=== PATIENT | female | born 1985 | race Caucasian/White ===

== ENCOUNTER 2019-02-20 09:58 | Outpatient (CLI) | payer OTHER, SELFPAY | END 2019-02-20 10:18 | PROVIDERS: PCP Naturopath; Visit Provider Advanced Practice Midwife | DX: Z34.91 Encounter for supervision of normal pregnancy, unspecified, first trimester (principal) | CPT/HCPCS: 36415; 86850; 86900; 86901 ==

== ENCOUNTER 2019-03-12 12:19 | Outpatient (REF) | payer OTHER, SELFPAY ==
[2019-03-12 14:02] LABS: *AMPHETAMINES SCREEN URINE Negative (Negative); *BARBITURATES SCREEN URINE Negative (Negative); *BENZODIAZEPINES SCREEN URINE Negative (Negative); Cannabinoids THC Negative (Negative); Cocaine Screen,Urine Negative (Negative); METHADONE URINE SCREEN Negative (Negative); OPIATES URINE SCREEN Negative (Negative)
[2019-03-12 14:05] LABS: Tricyclic Antidepressants Negative (Negative)
[2019-03-18 13:58] LABS: Buprenorphine Negative; Norbuprenorphine Negative
== END 2019-03-12 12:39 ==
LOC: LBN 12:19
PROVIDERS: PCP Naturopath; Visit Provider Advanced Practice Midwife
DX: Z34.91 Encounter for supervision of normal pregnancy, unspecified, first trimester (principal)
CPT/HCPCS: 80307; 87086

== ENCOUNTER 2019-03-18 08:22 | Outpatient (CLI) | payer SELFPAY ==
[2019-03-18 09:30] LABS: Kit/Specimen SENT
[2019-03-18 09:42] LABS: Absolute Basophil Count 0.01 k/cumm (0.0-0.2); Absolute Eosinophil Count 0.07 k/cumm (0.0-0.7); Absolute Lymphocyte Count 1.17 k/cumm (1.2-3.4); Absolute Monocyte Count 0.32 k/cumm (0.11-0.7); Absolute Neutrophil Count 3.84 k/cumm (1.2-6.7); Basophils % 0.2; Eosinophils % 1.3; HCT 39.1 % (36.0-46.0); HGB 13.2 g/dL (12.0-15.5); Lymphocytes % 21.6; Mean Corp. HGB Concentration 33.8 g/dL (32.0-36.0); Mean Corpuscular Hemoglobin 32.3 pg (27.0-33.0); Mean Corpuscular Volume 95.6 fL (80-95); Mean Platelet Volume 8.9 fL (8.0-11.0); Monocytes % 5.9; Platelet Count 236 x1000/uL (130-400); RBC 4.09 m/cumm (4.00-5.20); RBC Distribution Width 12.4 % (11.7-14.6); White Blood Cell Count 5.41 k/cumm (4.4-10.8)
[2019-03-19 09:05] LABS: Hepatitis B Surface Ag Negative (Negative)
[2019-03-19 09:47] LABS: HIV-1/2 Ag & Ab Screen Negative (Negative); Hepatitis C Ab w Rflx HCV PCR Negative (Negative)
[2019-03-19 10:30] LABS: Rubella IgG Ab (UVM) Positive (See Note); Varicella IgG Antibody Positive (See Note)
[2019-03-19 12:52] LABS: Syphilis Total Ab w/Reflex Nonreactive (Nonreactive)
[2019-03-21 11:29] LABS: Result Summary NEGATIVE; Specimen WB Whole Blood
[2019-03-24 09:51] LABS: Specimen WB Whole Blood
== END 2019-03-18 08:42 ==
PROVIDERS: PCP Naturopath; Visit Provider Advanced Practice Midwife
DX: Z34.91 Encounter for supervision of normal pregnancy, unspecified, first trimester (principal); Z36.89 Encounter for other specified antenatal screening
CPT/HCPCS: 36415; 81329; 86787; 86803; 86850; 86900; 86901; 87340; 87389; 81220; 85025; 86762; 86780

== ENCOUNTER 2019-04-28 01:39 | Outpatient (CLI) | payer OTHER, SELFPAY ==
--- NOTE | 2019-04-28 08:45 | DI.US_ITS ---
EXAM: US OB 2-3 TRIMESTER CLINICAL HISTORY: , Z34.90 TECHNIQUE: Ultrasound performed using standard protocol. COMPARISON: No exams were available for comparison FINDINGS: The fetus was in variable position during the exam. The placenta is posterior. The biometric measu rements correspond to 18 weeks 3 days, consistent with previous dating. No abnormalities are i dentified. IMPRESSION: survey is within normal limits. DATA REPOSITORY:
== END 2019-04-28 01:59 ==
PROVIDERS: PCP Nurse Practitioner Family; Visit Provider Advanced Practice Midwife
DX: Z34.92 Encounter for supervision of normal pregnancy, unspecified, second trimester (principal); Z3A.18 18 weeks gestation of pregnancy
CPT/HCPCS: 76805

== ENCOUNTER 2019-07-09 09:32 | Outpatient (CLI) | payer OTHER, SELFPAY ==
[2019-07-09 09:57] LABS: HCT 39.4 % (36.0-46.0); HGB 13.4 g/dL (12.0-15.5); Mean Corpuscular Hemoglobin 33.4 pg (27.0-33.0); Mean Corpuscular Volume 98.3 fL (80-95); Mean Platelet Volume 8.9 fL (8.0-11.0); Platelet Count 267 x1000/uL (130-400); RBC 4.01 m/cumm (4.00-5.20); RBC Distribution Width 12.4 % (11.7-14.6); White Blood Cell Count 8.99 k/cumm (4.4-10.8)
== END 2019-07-09 09:52 ==
PROVIDERS: PCP Nurse Practitioner Family; Visit Provider Advanced Practice Midwife
DX: Z34.93 Encounter for supervision of normal pregnancy, unspecified, third trimester (principal)
CPT/HCPCS: 85027; 82947

== ENCOUNTER 2019-09-04 17:21 | Outpatient (REF) | payer OTHER, SELFPAY ==
[2019-09-04 18:34] LABS: *AMPHETAMINES SCREEN URINE Negative (Negative); *BARBITURATES SCREEN URINE Negative (Negative); *BENZODIAZEPINES SCREEN URINE Negative (Negative); Cannabinoids THC Negative (Negative); Cocaine Screen,Urine Negative (Negative); METHADONE URINE SCREEN Negative (Negative); OPIATES URINE SCREEN Negative (Negative)
[2019-09-04 18:50] LABS: Tricyclic Antidepressants Negative (Negative)
[2019-09-13 16:24] LABS: Buprenorphine Negative
== END 2019-09-04 17:41 ==
LOC: LBN 17:21
PROVIDERS: PCP Nurse Practitioner Family; Visit Provider Advanced Practice Midwife
DX: Z34.93 Encounter for supervision of normal pregnancy, unspecified, third trimester (principal); Z36.85 Encounter for antenatal screening for Streptococcus B
CPT/HCPCS: 80307; 87081

== ENCOUNTER 2019-09-18 20:56 | Outpatient (REF) | payer OTHER, SELFPAY ==
[2019-09-25 18:34] LABS: Chlamydia Result Negative (Negative); GC Result Negative (Negative)
== END 2019-09-18 21:16 ==
LOC: LBN 20:56
PROVIDERS: PCP Nurse Practitioner Family; Visit Provider Advanced Practice Midwife
DX: Z34.90 Encounter for supervision of normal pregnancy, unspecified, unspecified trimester (principal)
CPT/HCPCS: 87491; 87591

== ENCOUNTER 2019-09-24 03:12 | Outpatient (CLI) | payer OTHER, SELFPAY ==
[2019-09-24 10:32] LABS: Abs Immature Grans 0.03 10^3/uL (0.0-0.06); Absolute Basophil Count 0.02 10^3/uL (0.0-0.2); Absolute Eosinophil Count 0.02 10^3/uL (0.0-0.7); Absolute Lymphocyte Count 1.47 10^3/uL (1.2-3.4); Absolute Monocyte Count 0.41 10^3/uL (0.1-0.8); Absolute Neutrophil Count 4.35 10^3/uL (1.2-6.7); Basophils % 0.3; Eosinophils % 0.3; HCT 36.5 % (36.0-46.0); HGB 12.6 g/dL (11.2-15.7); Immature Grans % 0.5; Lymphocytes % 23.3; MCH 33.4 pg (27.0-33.0); MCHC 34.5 % (32.0-36.0); MCV 96.8 fL (80-95); MPV 9.8 fL (8.0-11.0); Monocytes % 6.5; Neutrophils % 69.1; Platelet Count 178 10^3/uL (130-400); RBC 3.77 10^6/uL (3.93-5.22); RDW-SD 42.5 fL
[2019-09-24 11:47] LABS: PROTEIN 6.8 mg/dL
[2019-09-24 11:48] LABS: COMMENT (LAB VIEW ONLY) 72.94 mg/dL; Prot/Crea Ur Ratio 0.09
[2019-09-24 12:09] LABS: ALT 23 U/L (14-59); AST 35 U/L (15-37); Albumin 2.7 g/dL (3.4-5.0); Alkaline Phosphatase 132 U/L (46-116); Anion Gap 9.4 mmol/L (3-11); BUN 15 mg/dL (7-18); Bilirubin, Total 0.3 mg/dL (0.2-1.0); CO2 23.6 mmol/L (21.0-32.0); CREATININE 1.02 mg/dL (0.55-1.02); Calcium 8.6 mg/dL (8.5-10.1); Chloride 104 mmol/L (98-107); Glucose 82 mg/dL (74-106); Potassium 4.2 mmol/L (3.5-5.1); Sodium 137 mmol/L (136-145); Total Protein 6.1 g/dL (6.4-8.2); Uric Acid 8.3 mg/dL (2.6-6.0)
== END 2019-09-24 03:32 ==
PROVIDERS: PCP Nurse Practitioner Family; Visit Provider Advanced Practice Midwife
DX: O16.3 Unspecified maternal hypertension, third trimester (principal)
CPT/HCPCS: 36415; 80053; 82565; 84156; 84550; 85025

== ENCOUNTER 2019-09-25 11:15 | Outpatient (CLI) | payer OTHER, SELFPAY | END 2019-09-25 11:35 | PROVIDERS: PCP Nurse Practitioner Family; Visit Provider Advanced Practice Midwife | DX: O13.3 Gestational [pregnancy-induced] hypertension without significant proteinuria, third trimester (principal); Z3A.39 39 weeks gestation of pregnancy | CPT/HCPCS: 59025 ==

== ENCOUNTER 2019-09-27 16:46 | Inpatient (IN) | payer OTHER, SELFPAY ==
[2019-09-27 16:20] LABS: HCT 34.5 % (36.0-46.0); HGB 11.8 g/dL (11.2-15.7); MCH 33.1 pg (27.0-33.0); MCHC 34.2 % (32.0-36.0); MCV 96.6 fL (80-95); MPV 9.8 fL (8.0-11.0); Platelet Count 173 10^3/uL (130-400); RBC 3.57 10^6/uL (3.93-5.22); RDW 11.9 % (11.7-14.6); RDW-SD 41.8 fL; WBC 7.22 10^3/uL (4.4-10.8)
[2019-09-27 16:35] LABS: ALT 16 U/L (14-59); AST 27 U/L (15-37); Albumin 2.4 g/dL (3.4-5.0); Alkaline Phosphatase 126 U/L (46-116); Anion Gap 9.7 mmol/L (3-11); BUN 14 mg/dL (7-18); Bilirubin, Total 0.2 mg/dL (0.2-1.0); CO2 22.3 mmol/L (21.0-32.0); CREATININE 1.02 mg/dL (0.55-1.02); Calcium 8.4 mg/dL (8.5-10.1); Chloride 105 mmol/L (98-107); Glucose 104 mg/dL (74-106); Sodium 137 mmol/L (136-145); Uric Acid 7.8 mg/dL (2.6-6.0)
[2019-09-27 17:40] LABS: COMMENT (LAB VIEW ONLY) 83.39 mg/dL; PROTEIN 11.7 mg/dL; Prot/Crea Ur Ratio 0.14
[2019-09-27] MEDS: miSOPROStol 25 MCG TAB 50 MCG PO (18:25)
[2019-09-28 07:41] VITALS: BP 130/81; PULSE 63; RESP 17; TEMP 37.3; O2SAT 97
[2019-09-28] MEDS: Acetaminophen 325 MG TAB 650 MG PO ×2 (08:46→16:17)
[2019-09-28] MEDS: Ibuprofen 600 MG TAB PO ×2 (08:46→16:14)
[2019-09-28] MEDS: Hamamelis Leaf/Glycerin 100 EACH BOX PR (08:47)
[2019-09-28] MEDS: Docusate Sodium 100 MG CAP PO (16:14)
[2019-09-29] MEDS: Ibuprofen 600 MG TAB PO ×4 (01:26→17:19)
[2019-09-29] MEDS: Acetaminophen 325 MG TAB 650 MG PO ×4 (01:29→17:19)
[2019-09-29 06:51] LABS: HCT 34.7 % (36.0-46.0); MCH 33.7 pg (27.0-33.0); MCHC 34.6 % (32.0-36.0); MCV 97.5 fL (80-95); Platelet Count 155 10^3/uL (130-400); RBC 3.56 10^6/uL (3.93-5.22); RDW 12.3 % (11.7-14.6); RDW-SD 43.6 fL
[2019-09-29 07:13] LABS: ALT 30 U/L (14-59); AST 78 U/L (15-37); Albumin 2.2 g/dL (3.4-5.0); Alkaline Phosphatase 97 U/L (46-116); Anion Gap 7.1 mmol/L (3-11); BUN 14 mg/dL (7-18); Bilirubin, Total 0.3 mg/dL (0.2-1.0); CO2 24.9 mmol/L (21.0-32.0); CREATININE 1.11 mg/dL (0.55-1.02); Calcium 8.3 mg/dL (8.5-10.1); Chloride 105 mmol/L (98-107); Estimated GFR 56.27 (mL/min/1.73m2); Glucose 72 mg/dL (74-106); Potassium 3.7 mmol/L (3.5-5.1); Sodium 137 mmol/L (136-145); Total Protein 5.6 g/dL (6.4-8.2); Uric Acid 7.9 mg/dL (2.6-6.0)
[2019-09-29 14:57] LABS: COVID-19 RT-PCR UVMMC Result Negative (Negative)
[2019-09-30] MEDS: Ibuprofen 600 MG TAB PO ×2 (03:06→08:26)
[2019-09-30] MEDS: Acetaminophen 325 MG TAB 650 MG PO ×2 (03:11→08:26)
[2019-09-30 09:55] LABS: HCT 34.3 % (36.0-46.0); HGB 11.8 g/dL (11.2-15.7); MCH 33.7 pg (27.0-33.0); MCHC 34.4 % (32.0-36.0); MPV 9.5 fL (8.0-11.0); Platelet Count 168 10^3/uL (130-400); RDW 12.4 % (11.7-14.6); WBC 8.09 10^3/uL (4.4-10.8)
[2019-09-30 11:37] LABS: ALT 35 U/L (14-59); AST 67 U/L (15-37); Albumin 2.5 g/dL (3.4-5.0); Alkaline Phosphatase 101 U/L (46-116); Anion Gap 7.7 mmol/L (3-11); BUN 13 mg/dL (7-18); Bilirubin, Total 0.2 mg/dL (0.2-1.0); CO2 24.3 mmol/L (21.0-32.0); CREATININE 0.99 mg/dL (0.55-1.02); Calcium 8.3 mg/dL (8.5-10.1); Chloride 107 mmol/L (98-107); Glucose 97 mg/dL (74-106); Potassium 3.9 mmol/L (3.5-5.1); Sodium 139 mmol/L (136-145); Total Protein 5.5 g/dL (6.4-8.2)
[2019-09-30 11:50] LABS: Uric Acid 7.5 mg/dL (2.6-6.0)
== END 2019-09-30 16:02 | disposition home or self-care (01) | DRG 807 ==
LOC: OBS 16:50
PROVIDERS: Advanced Practice Midwife; Admitting Provider Advanced Practice Midwife; PCP Nurse Practitioner Family; Visit Provider Advanced Practice Midwife
DX: O70.0 First degree perineal laceration during delivery (principal); Z37.0 Single live birth; O69.1XX0 Labor and delivery complicated by cord around neck, with compression, not applicable or unspecified; O69.89X0 Labor and delivery complicated by other cord complications, not applicable or unspecified; Z3A.40 40 weeks gestation of pregnancy; Z03.818 Encounter for observation for suspected exposure to other biological agents ruled out; O13.4 Gestational [pregnancy-induced] hypertension without significant proteinuria, complicating childbirth; Z79.82 Long term (current) use of aspirin
CPT/HCPCS: 36415; 80053; 85027; 86850; 86900; 86901; U0003; 82565; 84156; 84550; J3490

== ENCOUNTER 2019-10-08 03:07 | Outpatient (CLI) | payer OTHER, SELFPAY ==
[2019-10-08 15:27] LABS: HGB 13.1 g/dL (11.2-15.7); MCHC 33.6 % (32.0-36.0); MCV 98.2 fL (80-95); MPV 8.8 fL (8.0-11.0); Platelet Count 316 10^3/uL (130-400); RBC 3.97 10^6/uL (3.93-5.22); RDW 11.9 % (11.7-14.6); RDW-SD 43.4 fL; WBC 8.17 10^3/uL (4.4-10.8)
[2019-10-08 16:30] LABS: ALT 55 U/L (14-59); AST 46 U/L (15-37); Albumin 3.2 g/dL (3.4-5.0); Alkaline Phosphatase 99 U/L (46-116); Anion Gap 6.2 mmol/L (3-11); BUN 10 mg/dL (7-18); Bilirubin, Total 0.3 mg/dL (0.2-1.0); CO2 29.8 mmol/L (21.0-32.0); CREATININE 0.98 mg/dL (0.55-1.02); Calcium 8.8 mg/dL (8.5-10.1); Chloride 102 mmol/L (98-107); FREE T4 1.24 ng/dL (0.76-1.46); Glucose 111 mg/dL (74-106); Potassium 4.1 mmol/L (3.5-5.1); Sodium 138 mmol/L (136-145); TSH 1.58 uIU/mL (0.36-3.74); Total Protein 6.8 g/dL (6.4-8.2); Uric Acid 6.7 mg/dL (2.6-6.0)
== END 2019-10-08 03:27 ==
PROVIDERS: PCP Nurse Practitioner Family; Visit Provider Advanced Practice Midwife
DX: O14.93 Unspecified pre-eclampsia, third trimester (principal); O92.79 Other disorders of lactation; Z34.90 Encounter for supervision of normal pregnancy, unspecified, unspecified trimester
CPT/HCPCS: 36415; 80053; 85027; 84439; 84443; 84550

== ENCOUNTER 2019-11-11 16:02 | Outpatient (REF) | payer BC, SELFPAY ==
--- NOTE | 2019-11-11 15:00 | PAPFT_PTH ---
PATIENT: Nayana Marshall I LOC: J[facility] U#:[id number] AGE/SX: 34/F ROOM: RE11/11/[address]: Celia Wallace CNM : 1985 BED: DIS: 11/11/2019 SPEC #: [id number] RECD: 11/11/19 17:57 STATUS: DENISE ZURITA #: [id number] JENELLE: 11/11/19 15:[address]: Celia Wallace DEPT: [facility] Cytology RECD BY: Carole Pena ENTERED: 11/11/19 17:57 SP TYPE: PAPFT OTHR DR: Jody Fofana, CHIPPER FEEDER Tissues: 1 - CX/ENDOCX FOR PAP SMEARS Procedures: PAP THIN PREP/UVM Screening HPV DNA PROBE Comments: [id number]
== END 2019-11-11 16:22 ==
LOC: LBN 16:02
PROVIDERS: PCP Nurse Practitioner Family; Visit Provider Advanced Practice Midwife
DX: Z12.4 Encounter for screening for malignant neoplasm of cervix (principal); Z11.51 Encounter for screening for human papillomavirus (HPV)
CPT/HCPCS: 88142; 87624

== ENCOUNTER 2020-06-11 01:00 | Outpatient (CLI) | payer BC, SELFPAY ==
[2020-06-11 12:45] LABS: Anion Gap 9.1 mmol/L (3-11); BUN 23 mg/dL (7-18); CO2 27.9 mmol/L (21.0-32.0); CREATININE 1.2 mg/dL (0.55-1.02); Calcium 9.1 mg/dL (8.5-10.1); Calculated LDL 87 mg/dL (<100); Chloride 107 mmol/L (98-107); Cholesterol 162 mg/dL (<200); Estimated GFR 51.12 (mL/min/1.73m2); Glucose 80 mg/dL (74-106); HDL Cholesterol 67 mg/dL (40-60); Potassium 4.3 mmol/L (3.5-5.1); Sodium 144 mmol/L (136-145); Triglyceride 43 mg/dL (<150)
== END 2020-06-11 01:01 | disposition home or self-care (01) ==
LOC: LOS 01:00
PROVIDERS: PCP Nurse Practitioner Family; Visit Provider Nurse Practitioner Family
DX: Z00.00 Encounter for general adult medical examination without abnormal findings (principal); Z13.220 Encounter for screening for lipoid disorders; Z13.228 Encounter for screening for other metabolic disorders
CPT/HCPCS: 36415; 80048; 80061

== ENCOUNTER 2021-08-09 02:17 | Outpatient (CLI) | payer BC, SELFPAY | END 2021-08-09 02:18 | disposition home or self-care (01) | LOC: LOS 02:18 | PROVIDERS: PCP Nurse Practitioner Family; Visit Provider Nurse Practitioner Family ==

== ENCOUNTER 2021-08-24 01:59 | Outpatient (CLI) | payer BC, SELFPAY | END 2021-08-24 02:00 | disposition home or self-care (01) | LOC: LOS 01:59 | PROVIDERS: PCP Nurse Practitioner Family; Visit Provider Nurse Practitioner Family | DX: R79.89 Other specified abnormal findings of blood chemistry (principal) | CPT/HCPCS: 36415; 82565 ==

== ENCOUNTER 2021-12-14 15:41 | Outpatient (CLI) | payer BC, SELFPAY ==
[2021-12-14 15:34] LABS: HCG Quant, Pregnancy 586 mIU/mL (1-3)
== END 2021-12-14 15:42 | disposition home or self-care (01) ==
LOC: LBO 15:48
PROVIDERS: PCP Nurse Practitioner Family; Visit Provider Obstetrics & Gynecology
DX: O20.0 Threatened abortion (principal)
CPT/HCPCS: 36415; 84702

== ENCOUNTER 2021-12-16 02:06 | Outpatient (CLI) | payer BC, SELFPAY ==
--- OUTSIDE RECORDS SUMMARY | 2021-12-16 02:07 | XMS_ITS | Encounter Summary ---
:1985 Author Organization [facility] Address [address] [place] [address] Care Team Providers Name Role Phone Jessika Langston VERNELL Primary Care Provider Encounter Details Date Type Department Care Team Description 11/12/2019 Lab Requisition [facility] Celia Wallace, En counter for other Pathology & CNM general examination Laboratory Medicine [address] [place], [place] 111 [facility] [address] [place], [place] [id number] Social History Tobacco Use Types Packs/Day Years Used Date Never Assessed Sex Assigned at Date Recorded Not on file documented as of this encounter Plan of Treatment Not on filedocumented as of this encounter Procedures Procedure Name Priority Date/Time Associated Comments Diagnosis PAP TEST Today 11/11/2019 15:00 Encounter for other Resu lts for this EDT general examination procedur e are in the results section. HUMAN PAPILLOMAVIRUS Today 11/11/2019 15:00 Encounter for ot her Results for this (HPV) DETECTION-HIGH EDT general examination procedure are in RISK TYPES the results section. documented in this encounter Results HUMAN PAPILLOMAVIRUS (HPV) DETECTION-HIGH RISK TYPES (11/11/2019 15:00 EDT) Human Papillomavirus NegativeComment: No Negative [facility] (HPV) Detection-High E6 or E7 mRNA is CENTER LABORATOR Y Types detected from HPV SERVICES types 16,18,31,33,35,39,45 ,51,52,56,58,59,66, and 68 by feed and farm management adviser mediated amplification. Specimen Pap Test - Cervix and/or Endocervix Performing Organization Address City/State/ZIP Code Phon e Number [facility] [address] [place] [address] SERVICES PAP TEST (11/11/2019 15:00 EDT) Specimens A. Cervix and/or [facility] Endocervix , ThinPrep CENTER Imaging System with LABORATORY Manual Evaluation SERVICES Specimen Adequacy Satisfactory for [facility] Evaluation - CENTER transformation zone LABORATORY component present SERVICES General Negative for [facility] intraepithelial EMPIRE lesion or malignancy LABORATORY SERVICES Attestation . [facility] signed by DENZEL Romero CT(ASCP) o n SERVICES 11/19/2019 at 15 19 Clinical History See below [facility] SERVICES HPV The result for the Human Pap illomavirus (HPV) Detection-High Risk Types is Negative. No E6 or E7 mRNA is detected from HPV types 16,18,31,33,35,39,45,51,52,56,58,59,66, and 68 by feed and farm management adviser mediated [facility] amplification.Testing was pe rformed on specimen [id number] and was resulted on 11/19/2019 1515 EDT by ROGER, LAB INSTRUMENT RESULTS IN [facility] SERVICES Performing Lab [facility] Scanned Images [facility] SERVICES Specimen Pap Test - Cervix and/or Endocervix Performing Organization Address City/State/ZIP Code Phon e Number [facility] [address] [place] [address] SERVICES documented in this encounter Visit Diagnoses Diagnosis Encounter for other general examination documented in this encounter Care Teams Cuprous Chloride Helper Relationship Specialty Start Date End Date Jessika Langston ND PCP - General 01/14/14 documented as of this encounter
--- OUTSIDE RECORDS SUMMARY | 2021-12-16 02:07 | XMS_ITS | Encounter Summary ---
:1985 Author Organization [facility] Address [address] [place] [address] Care Team Providers Name Role Phone Jessika Langston ND Primary Care Provider Encounter Details Date Type Department Care Team Description 12/23/2014 Results Only [facility] Jessika Langston ND [phone] [place], [place] [id number] (Wo rk) Social History Tobacco Use Types Packs/Day Years Used Date Never Assessed Sex Assigned at Date Recorded Not on file documented as of this encounter Plan of Treatment Not on filedocumented as of this encounter Procedures Procedure Name Priority Date/Time Associated Comments Diagnosis CHLAMYDIA/N. Routine 12/23/2014 19:40 Results for this GONORRHOEAE AMPLIFIED EDT proced ure are in RNA the results section. documented in this encounter Results CHLAMYDIA/GC AMPLIFIED (12/23/2014 19:40 EDT) Chlamydia Result No Chlamydia [facility] trachomatis DNA LABORATORY detected by SERVICES magistrate assistant mediated amplification. GC Result No Neisseria [facility] gonorrhoeae DNA LABORATORY detected by SERVICES magistrate assistant mediated amplification. Specimen Cervix Performing Organization Address City/State/ZIP Code Phon e Number [facility] [address] [place] [address] SERVICES documented in this encounter Visit Diagnoses Not on filedocumented in this encounter Care Teams X Ray Operator Relationship Specialty Start Date End Date Jessika Langston ND PCP - General 01/14/14 documented as of this encounter
--- OUTSIDE RECORDS SUMMARY | 2021-12-16 02:07 | XMS_ITS | Encounter Summary ---
:1985 Author Organization [facility] Address [address] [place] [address] Care Team Providers Name Role Phone Jessika Langston ND Primary Care Provider Encounter Details Date Type Department Care Team Description 03/18/2019 Lab Requisition [facility] Unknown, Provider, Pathology & Laboratory [facility] [address] [place] [address] [place], [place] [id number] Social History Tobacco Use Types Packs/Day Years Used Date Never Assessed Sex Assigned at Date Recorded Not on file documented as of this encounter Plan of Treatment Not on filedocumented as of this encounter Procedures Procedure Name Priority Date/Time Associated Comments Diagnosis HIV 1/2 ANTIGEN AND Routine 03/18/2019 9:20 EST R esults for this ANTIBODY, 4TH procedure are in GENERATION the results section. documented in this encounter Results HIV 1/2 ANTIGEN AND ANTIBODY, 4TH GENERATION (03/18/2019 9:20 EST) HIV 1 and 2 Negative Negative [facility] Antibody/p24 Comment: LABORATORY Antigen, 4th SERVICES Generation If acute HIV-1 infection is suspected in a high risk ??patient, submit plasma specimen for HIV-1 RNA quantitation test. Fourth Generation assay performed on the Siemens PointsHounda ur. Specimen Blood - Venous blood (substance) Performing Organization Address City/State/ZIP Code Phon e Number [facility] [address] [place] [address] SERVICES documented in this encounter Visit Diagnoses Not on filedocumented in this encounter Care Teams Devulcanizer Head Relationship Specialty Start Date End Date Jessika Langston ND PCP - General 01/14/14 documented as of this encounter
--- OUTSIDE RECORDS SUMMARY | 2021-12-16 02:07 | XMS_ITS | Encounter Summary ---
:1985 Author Organization [facility] Address [address] [place] [address] Care Team Providers Name Role Phone Jessika Langston VERNELL Primary Care Provider Encounter Details Date Type Department Care Team Description 03/18/2019 Lab Requisition [facility] Unknown, Provider, Pathology & Laboratory [facility] [address] [place] [address] [place] [address] Social History Tobacco Use Types Packs/Day Years Used Date Never Assessed Sex Assigned at Date Recorded Not on file documented as of this encounter Plan of Treatment Not on filedocumented as of this encounter Procedures Procedure Name Priority Date/Time Associated Diagnosis Comme nts HEPATITIS C AB W Routine 03/18/2019 9:20 EST Resu lts for this REFLEX TO HCV RNA procedure are in BY PCR the results section. HEPATITIS B SURFACE Routine 03/18/2019 9:20 EST R esults for this ANTIGEN procedure are i n the results section. documented in this encounter Results HEPATITIS B SURFACE ANTIGEN (03/18/2019 9:20 EST) Pathologist Sig nature Hep B Surface Ag Negative Negative [facility] LABORATORY SERVICES Specimen Blood - Venous blood (substance) Performing Organization Address City/[facility]/ZIP Code Phon e Number [facility] [address] [place] [address] SERVICES HEPATITIS C AB W REFLEX TO HCV RNA BY PCR (03/18/2019 9:20 EST) Pathologist Sig nature Hep C Antibody Negative Negative [facility] LABORAT ORY SERVICES Specimen Blood - Venous blood (substance) Performing Organization Address [facility] Phon e Number [facility] [address] [place] [address] SERVICES documented in this encounter Visit Diagnoses Not on filedocumented in this encounter Care Teams English Adjunct Faculty Relationship Specialty Start Date End Date Jessika Langston ND PCP - General 01/14/14 documented as of this encounter
--- OUTSIDE RECORDS SUMMARY | 2021-12-16 02:07 | XMS_ITS | Encounter Summary ---
:1985 Author Organization [facility] Address [address] [place] [address] Care Team Providers Name Role Phone Jessika Langston ND Primary Care Provider Encounter Details Date Type Department Care Team Description 12/06/2017 Results Only [facility] PRISM Reno Vigil ND [phone] [facility] [address] [place], [place] [address] (Wo rk) Social History Tobacco Use Types Packs/Day Years Used Date Never Assessed Sex Assigned at Date Recorded Not on file documented as of this encounter Plan of Treatment Not on filedocumented as of this encounter Procedures Procedure Name Priority Date/Time Associated Diagnosis Comme nts PAP TEST- RESULT Routine 12/06/2017 0:00 EDT Resu lts for this ONLY procedure are i n the results section. documented in this encounter Results PAP TEST- RESULT ONLY (12/06/2017 0:00 EDT) Pathology Report: CYTOPATHOLOGY REPORT [facility] Reports generated via electronic interface contain liz ginal data; SERVICES however they are lacking the format of the original re port. Caution should be taken when reading/interpreting unfo rmatted reports. Name: ? NAYANA COWAN ? Accession #: ? [id number] ? : ? 1985 (Age: 3 2) ??F ?Collect Da te: ? 12/06/2017 ? Location: ? [facility] ? Receive Date: ? 018 ? Provider: RENO VIGIL ND Copy to: ? Final Report SPECIMEN ADEQUACY ? Satisfactory for Evaluation - transformation zone component present GENERAL CATEGORIZATION ? Negative for Intraepithelial Lesion or Malignan cy ?? Last Menstrual Period: 11/28/17 Hormonal/Contraceptive status: Yes Specimen/Source: ??Pap Test, Endocervix, ThinPrep Imag ing System with manual evaluation Document reviewed and electronically signed by: ? IMTIAZ Caldwell(ASCP) ? Report ??Date: 12/17/2017 11:41 HPV with Pap Test ? Date Ordered: ? 12/17/2017 ? Status: ?? Signed Out ?Date Complete: ? 12/20/2017 ? By: ??S ystem Interface ? Date Reported: ? 12/20/2017 ? Interpretation RESULT: Negative for HPV. No E6 or E7 mRNA is detected from HPV types 16,18,31,3 3,35, 39,45,51,52,56,58,59,66, and 68 by appraisal specialist media camille amplification. Comments Document reviewed and electronically signed by: ? System Interface ? Report date: 12/20/2017 By the signature above, the attending physician certif ies that he/she has personally conducted a gross and/or microscopic examin ation of the described specimens and rendered or confirmed the above diagnosi s. End of Report Specimen Performing Organization Address City/State/ZIP Code Phon e Number [facility] [address] [place] [address] SERVICES documented in this encounter Visit Diagnoses Not on filedocumented in this encounter Care Teams Hazardous Materials Driver Relationship Specialty Start Date End Date Jessika Langston ND PCP - General 01/14/14 documented as of this encounter
--- OUTSIDE RECORDS SUMMARY | 2021-12-16 02:07 | XMS_ITS | Clinical Summary ---
:1985 Author Organization [facility] Address [address] [place] [address] Care Team Providers Name Role Phone Jessika Langston ND Primary Care Provider Social History Tobacco Use Types Packs/Day Years Used Date Never Assessed Sex Assigned at Date Recorded Not on file Plan of Treatment Not on file Care Teams Tappet Adjuster Relationship Specialty Start Date End Date Jessika Langston ND PCP - General 01/14/14
--- OUTSIDE RECORDS SUMMARY | 2021-12-16 02:07 | XMS_ITS | Encounter Summary ---
:1985 Author Organization [facility] Address [address] [place] [address] Care Team Providers Name Role Phone Jessika Langston VERNELL Primary Care Provider Encounter Details Date Type Department Care Team Description 03/18/2019 Lab Requisition [facility] Unknown, Provider, Pathology & Laboratory [facility] [address] [place] [address] [place] [address] Social History Tobacco Use Types Packs/Day Years Used Date Never Assessed Sex Assigned at Date Recorded Not on file documented as of this encounter Plan of Treatment Not on filedocumented as of this encounter Procedures Procedure Name Priority Date/Time Associated Diagnosis Comme nts RUBELLA IGG Routine 03/18/2019 9:20 EST Results for this ANTIBODY procedure are i n the results section. VARICELLA IGG Routine 03/18/2019 9:20 EST Results for this ANTIBODY procedure are i n the results section. documented in this encounter Results VARICELLA IGG ANTIBODY (03/18/2019 9:20 EST) Varicella IgG Ab PositiveComment: See Note [facility] Presence of LABORATORY SERVICES detectable Varicella Zoster virus IgG antibodies. Specimen Blood - Venous blood (substance) Performing Organization Address [facility]/ZIP Code Phon e Number [facility] [address] [place] [address] SERVICES RUBELLA IGG ANTIBODY (03/18/2019 9:20 EST) Rubella IgG Ab PositiveComment: See Note [facility] Positive for IgG LABORATORY SERVICES antibodies to Rubella virus. Specimen Blood - Venous blood (substance) Performing Organization Address [facility] Phon e Number [facility] [address] [place] [address] SERVICES documented in this encounter Visit Diagnoses Not on filedocumented in this encounter Care Teams Photographers' Model Relationship Specialty Start Date End Date Jessika Langston ND PCP - General 01/14/14 documented as of this encounter
--- OUTSIDE RECORDS SUMMARY | 2021-12-16 02:07 | XMS_ITS | Encounter Summary ---
:1985 Author Organization [facility] Address [address] [place] [address] Care Team Providers Name Role Phone Jessika Langston ND Primary Care Provider Encounter Details Date Type Department Care Team Description 09/19/2019 Lab Requisition [facility] Outr Resulting Lab, Pathology & Laboratory Provider [facility] [address] [place] [address] Social History Tobacco Use Types Packs/Day Years Used Date Never Assessed Sex Assigned at Date Recorded Not on file documented as of this encounter Plan of Treatment Not on filedocumented as of this encounter Procedures Procedure Name Priority Date/Time Associated Comments Diagnosis CHLAMYDIA/N. Routine 09/18/2019 15:50 Results for this GONORRHOEAE AMPLIFIED EDT proced ure are in RNA the results section. documented in this encounter Results CHLAMYDIA/N. GONORRHOEAE AMPLIFIED RNA (09/18/2019 15:50 EDT) Pathologist Sig nature Gonococcus Result Negative Negative [facility] Chlamydia Result Negative Negative [facility] Specimen Urine - Urine, Initial Void Narrative [facility] - 09/25/2019 18:29 EDT A first catch urine specimen is acceptab le for detection of Gonorrhea and Chlamydia, but might detect up to 10% fewer infecti ons when compared with vaginal and endocervical swab samples. Performing Organization Address City/State/ZIP Code Phon e Number [facility] [address] [place] [address] SERVICES documented in this encounter Visit Diagnoses Not on filedocumented in this encounter Care Teams Die Trimmer Relationship Specialty Start Date End Date Jessika Langston ND PCP - General 01/14/14 documented as of this encounter
--- OUTSIDE RECORDS SUMMARY | 2021-12-16 02:07 | XMS_ITS | Encounter Summary ---
:1985 Author Organization [facility] Address [address] [place] [address] Care Team Providers Name Role Phone Jessika Langston ND Primary Care Provider Encounter Details Date Type Department Care Team Description 01/14/2014 Phlebotomy Only [facility] [place] Outpatient [address] [place] [address] Social History Tobacco Use Types Packs/Day Years Used Date Never Assessed Sex Assigned at Date Recorded Not on file documented as of this encounter Plan of Treatment Not on filedocumented as of this encounter Visit Diagnoses Not on filedocumented in this encounter Care Teams Newsroom Intern Relationship Specialty Start Date End Date Jessika Langston ND PCP - General 01/14/14 documented as of this encounter
--- OUTSIDE RECORDS SUMMARY | 2021-12-16 02:08 | XMS_ITS | Encounter Summary ---
:1985 Author Organization [facility] Address [address] [place] [address] Care Team Providers Name Role Phone Unknown, Provider Primary Care Provider Encounter Details Date Type Department Care Team Description 12/12/2012 Results Only [facility]- Jessika Nieto ND [phone] [place] [address] (Wo rk) Social History Tobacco Use Types Packs/Day Years Used Date Never Assessed Sex Assigned at Date Recorded Not on file documented as of this encounter Plan of Treatment Not on filedocumented as of this encounter Procedures Procedure Name Priority Date/Time Associated Diagnosis Comme nts PAP TEST- RESULT Routine 12/12/2012 0:00 EDT Resu lts for this ONLY procedure are i n the results section. documented in this encounter Results PAP TEST- RESULT ONLY (12/12/2012 0:00 EDT) Pathology Report: CYTOPATHOLOGY REPORT [facility] Reports generated via electronic interface contain liz ginal data; however they are lacking the format of the original re port. Caution should be taken when reading/interpreting unfo rmatted reports. Name: ? NAYANA COWAN ? Accession #: ? [id number] : ? 1985 (Age: 27) ??F ?Collect Date: ? 11/26 Location: ? [facility] ? Receive Date: ? 12/16/2012 Provider: ?JESSIKA CHRISTENSEN ND Copy to: ? Specimen/Source: ?Pap Test, En docervix, ThinPrep Imaging System with manual evaluation Last Menstrual Period: ? 12/04/12 Other: ? Additional clinical information: History of abnormal ? SPECIMEN ADEQUACY ? Unsatisfactory for Evaluation, - insufficient numbers of squamous epith elial cells (less than 10% of expected cellularity) GENERAL CATEGORIZATION ? Specimen processed and examined, but unsatisfac tory for evaluation of epithelial abnormality. ??Recommend repe at Pap test in 2-4 months as stated in ASCCP's 2012 Updated Consensus Guidelines. ? Document reviewed and electronically signed by: ? IMTIAZ Andrade(ASCP) ? Report Date: ??12/23/2012 08:18 End of Report Specimen Performing Organization Address City/State/ZIP Code Phon e Number [facility] [address] [place] [address] SERVICES [facility] [address] [place] [address] documented in this encounter Visit Diagnoses Not on filedocumented in this encounter Care Teams Draw Furnace Tender Relationship Specialty Start Date End Date Unknown, Provider, PCP - General 12/14/12 01/13/14 documented as of this encounter
--- OUTSIDE RECORDS SUMMARY | 2021-12-16 02:08 | XMS_ITS | Encounter Summary ---
:1985 Author Organization [facility] Address [address] [place] [address] Care Team Providers Name Role Phone Unknown, Provider Primary Care Provider Encounter Details Date Type Department Care Team Description 12/14/2012 Results Only [facility]- Jessika Nieto ND [phone] [place] [address] (Wo rk) Social History Tobacco Use Types Packs/Day Years Used Date Never Assessed Sex Assigned at Date Recorded Not on file documented as of this encounter Plan of Treatment Not on filedocumented as of this encounter Procedures Procedure Name Priority Date/Time Associated Comments Diagnosis CHLAMYDIA/N. Routine 12/12/2012 15:42 Results for this GONORRHOEAE AMPLIFIED EDT proced ure are in RNA, THINPREP the results section. documented in this encounter Results CHLAMYDIA/GC AMPLIFIED, THIN PREP (12/12/2012 15:42 EDT) Specimen Cervix, ThinPrep vial [facility] Description LAB Chlamydia Result No Chlamydia [facility] trachomatis DNA LAB detected by special forces engineer sergeant mediated amplification. GC Result No Neisseria [facility] gonorrhoeae DNA LAB detected by special forces engineer sergeant mediated amplification. Specimen Performing Organization Address City/State/ZIP Code Phon e Number [facility] [address] [place] [address] SERVICES [facility] [address] [place] [address] documented in this encounter Visit Diagnoses Not on filedocumented in this encounter Care Teams Bag Washer Relationship Specialty Start Date End Date Unknown, Provider, PCP - General 12/14/12 01/13/14 documented as of this encounter
--- OUTSIDE RECORDS SUMMARY | 2021-12-16 02:08 | XMS_ITS | Encounter Summary ---
:1985 Author Organization [facility] Address [address] [place] [address] Care Team Providers Name Role Phone Unknown, Provider Primary Care Provider Encounter Details Date Type Department Care Team Description 04/08/2013 Hospital Encounter [facility], Forest miller S, [place] MANAGER ELECTRICAL [address] [place] [address] [place], [place] [phone] (Wo rk) Social History Tobacco Use Types Packs/Day Years Used Date Never Assessed Sex Assigned at Date Recorded Not on file documented as of this encounter Discharge Diagnoses Diagnosis V76.2 SCREENING MAL NEOP-CERVIX[ICD-9-CM ] documented in this encounter Discharge Disposition Disposition Code Departure Means Destination Home or Self Care documented in this encounter Plan of Treatment Not on filedocumented as of this encounter Visit Diagnoses Not on filedocumented in this encounter Care Teams Client Technical Specialist Relationship Specialty Start Date End Date Unknown, Provider, PCP - General 12/14/12 01/13/14 documented as of this encounter
--- OUTSIDE RECORDS SUMMARY | 2021-12-16 02:08 | XMS_ITS | Encounter Summary ---
:1985 Author Organization [facility] Address [address] [place] [address] Care Team Providers Name Role Phone Unavailable Primary Care Provider Unavailable Encounter Details Date Type Department Care Team Description 12/12/2012 Hospital Encounter [facility], [facility] [address] [address] [place], [place] [phone] [id number] (Wo rk) Social History Tobacco Use Types Packs/Day Years Used Date Never Assessed Sex Assigned at Date Recorded Not on file documented as of this encounter Discharge Diagnoses Diagnosis V72.31 ROUTINE GYNECOLOGICAL EXAMINATION [ICD-9-CM] documented in this encounter Discharge Disposition Disposition Code Departure Means Destination Home or Self Care documented in this encounter Plan of Treatment Not on filedocumented as of this encounter Visit Diagnoses Not on filedocumented in this encounter
[2021-12-16 17:07] LABS: HCG Quant, Pregnancy 400 mIU/mL (1-3)
== END 2021-12-16 02:07 | disposition home or self-care (01) ==
LOC: LBO 02:06
PROVIDERS: PCP Nurse Practitioner Family; Visit Provider Obstetrics & Gynecology
DX: O20.0 Threatened abortion (principal)
CPT/HCPCS: 36415; 84702

== ENCOUNTER 2021-12-26 03:09 | Outpatient (CLI) | payer BC, SELFPAY ==
[2021-12-26 18:03] LABS: HCG Quant, Pregnancy 250 mIU/mL (1-3)
== END 2021-12-26 03:10 | disposition home or self-care (01) ==
LOC: LBO 03:09
PROVIDERS: PCP Nurse Practitioner Family; Visit Provider Obstetrics & Gynecology
DX: O20.0 Threatened abortion (principal)
CPT/HCPCS: 36415; 84702

== ENCOUNTER 2022-01-23 12:03 | Outpatient (CLI) | payer BC, SELFPAY ==
[2022-01-23 16:10] LABS: HCG Quant, Pregnancy 41 mIU/mL (1-3)
== END 2022-01-23 12:04 | disposition home or self-care (01) ==
LOC: LBO 12:05
PROVIDERS: PCP Nurse Practitioner Family; Visit Provider Obstetrics & Gynecology
DX: O03.9 Complete or unspecified spontaneous abortion without complication (principal)
CPT/HCPCS: 36415; 84702

== ENCOUNTER 2022-11-14 03:35 | Outpatient (CLI) | payer BC, SELFPAY ==
[2022-11-14 14:50] LABS: Panorama Kit Sent via Fed Ex
[2022-11-14 14:56] LABS: Abs Immature Grans 0.02 10^3/uL (0.0-0.06); Absolute Basophil Count 0.02 10^3/uL (0.0-0.2); Absolute Eosinophil Count 0.05 10^3/uL (0.0-0.7); Absolute Lymphocyte Count 1.41 10^3/uL (1.2-3.4); Absolute Monocyte Count 0.46 10^3/uL (0.1-0.8); Absolute Neutrophil Count 5.01 10^3/uL (1.2-6.7); Basophils % 0.3; Eosinophils % 0.7; HCT 34.8 % (36.0-46.0); HGB 11.9 g/dL (11.2-15.7); Immature Grans % 0.3; Lymphocytes % 20.2; MCH 32.2 pg (27.0-33.0); MCHC 34.2 % (32.0-36.0); MCV 94 fL (80-95); MPV 8.6 fL (8.0-11.0); Monocytes % 6.6; Neutrophils % 71.9; Platelet Count 266 10^3/uL (130-400); RBC 3.69 10^6/uL (3.93-5.22); RDW-SD 41.7 fL; WBC 6.97 10^3/uL (4.4-10.8)
[2022-11-16 10:56] LABS: Rubella IgG Ab (UVM) Positive (See Note)
[2022-11-16 12:33] LABS: Hepatitis B Surface Ag Negative (Negative)
[2022-11-16 12:36] LABS: HIV-1/2 Ag & Ab Screen Negative (Negative)
[2022-11-16 13:17] LABS: Hepatitis C Ab w Rflx HCV PCR Negative (Negative)
[2022-11-17 19:44] LABS: Syphilis IgG w/Reflex Nonreactive (Nonreactive)
== END 2022-11-14 03:36 | disposition home or self-care (01) ==
LOC: LBO 03:35
PROVIDERS: PCP Nurse Practitioner Family; Visit Provider Advanced Practice Midwife
DX: Z34.91 Encounter for supervision of normal pregnancy, unspecified, first trimester (principal)
CPT/HCPCS: 36415; 86803; 86850; 86900; 86901; 87340; 87389; 85025; 86762; 86780

== ENCOUNTER 2022-11-14 13:30 | Outpatient (REF) | payer BC, SELFPAY ==
[2022-11-14 16:37] LABS: *AMPHETAMINES SCREEN URINE Negative (Negative); *BARBITURATES SCREEN URINE Negative (Negative); *BENZODIAZEPINES SCREEN URINE Negative (Negative); Cannabinoids THC Negative (Negative); Cocaine Screen,Urine Negative (Negative); METHADONE URINE SCREEN Negative (Negative); OPIATES URINE SCREEN Negative (Negative)
[2022-11-14 16:38] LABS: Tricyclic Antidepressants Negative (Negative)
[2022-11-16 15:08] LABS: Chlamydia Result Negative (Negative); GC Result Negative (Negative)
[2022-11-21 13:55] LABS: Buprenorphine Negative ng/mL (Cutoff: 5.0); Norbuprenorphine Negative ng/mL (Cutoff: 2.5)
== END 2022-11-14 13:31 | disposition home or self-care (01) ==
LOC: LBN 13:30
PROVIDERS: PCP Nurse Practitioner Family; Visit Provider Advanced Practice Midwife
DX: Z34.91 Encounter for supervision of normal pregnancy, unspecified, first trimester (principal); Z11.3 Encounter for screening for infections with a predominantly sexual mode of transmission; Z3A.12 12 weeks gestation of pregnancy
CPT/HCPCS: 80307; 80348; 87491; 87591; 87086

== ENCOUNTER 2022-12-12 17:36 | Outpatient (CLI) | payer BC, SELFPAY ==
[2022-12-12 11:38] LABS: ALT 26 U/L (14-59); AST 22 U/L (15-37); Albumin 3.4 g/dL (3.4-5.0); Alkaline Phosphatase 55 U/L (46-116); Anion Gap 9.8 mmol/L (3-11); BUN 14 mg/dL (7-18); Bilirubin, Total 0.3 mg/dL (0.2-1.0); CO2 24.2 mmol/L (21.0-32.0); CREATININE 0.7 mg/dL (0.55-1.02); Calcium 9.3 mg/dL (8.5-10.1); Chloride 102 mmol/L (98-107); Estimated GFR 114.16 (mL/min/1.73m2); Glucose 85 mg/dL (74-106); Potassium 3.9 mmol/L (3.5-5.1); Sodium 136 mmol/L (136-145); Total Protein 7.3 g/dL (6.4-8.2)
[2022-12-13 11:15] LABS: Varicella IgG Antibody Positive (See Note)
== END 2022-12-12 17:37 | disposition home or self-care (01) ==
LOC: LBO 17:36
PROVIDERS: PCP Nurse Practitioner Family; Visit Provider Advanced Practice Midwife
DX: O09.522 Supervision of elderly multigravida, second trimester (principal); Z87.59 Personal history of other complications of pregnancy, childbirth and the puerperium; Z3A.16 16 weeks gestation of pregnancy
CPT/HCPCS: 36415; 80053; 86787

== ENCOUNTER 2022-12-19 16:01 | Outpatient (REF) | payer BC, SELFPAY ==
[2022-12-19 15:15] LABS: Creatinine,Urine 86.17 mg/dL; PROTEIN 6.9 mg/dL (0.0-11.9)
[2022-12-19 15:17] LABS: Creatinine,24hr Ur 0.09 g/24hr (0.60-1.80); TOTAL PROTEIN,URINE TIMED 11.7 mg/24hr (0.0-149.1); Total Volume 170 ml
== END 2022-12-19 16:02 | disposition home or self-care (01) ==
LOC: LBN 16:01
PROVIDERS: PCP Nurse Practitioner Family; Visit Provider Advanced Practice Midwife
DX: O09.522 Supervision of elderly multigravida, second trimester (principal); Z87.59 Personal history of other complications of pregnancy, childbirth and the puerperium
CPT/HCPCS: 81050; 82570; 84155

== ENCOUNTER 2023-03-09 04:24 | Outpatient (CLI) | payer BC, SELFPAY ==
[2023-03-09 09:37] LABS: HCT 35.9 % (36.0-46.0); MCH 32.9 pg (27.0-33.0); MCHC 33.4 % (32.0-36.0); MCV 98 fL (80-95); MPV 8.7 fL (8.0-11.0); Platelet Count 242 10^3/uL (130-400); RBC 3.65 10^6/uL (3.93-5.22); RDW 12.6 % (11.7-14.6); RDW-SD 45.8 fL; WBC 7.73 10^3/uL (4.4-10.8)
[2023-03-09 09:47] LABS: Glucose,1 Hr (Glucola) 86 mg/dL (80-140)
== END 2023-03-09 04:25 | disposition home or self-care (01) ==
LOC: LBO 04:24
PROVIDERS: Advanced Practice Midwife; PCP Nurse Practitioner Family; Visit Provider Advanced Practice Midwife
DX: Z34.93 Encounter for supervision of normal pregnancy, unspecified, third trimester (principal)
CPT/HCPCS: 36415; 82950; 85027

== ENCOUNTER 2023-05-03 08:53 | Outpatient (REF) | payer BC, SELFPAY | END 2023-05-03 08:54 | disposition home or self-care (01) | LOC: LBN 08:53 | PROVIDERS: PCP Nurse Practitioner Family; Visit Provider Advanced Practice Midwife | DX: Z34.93 Encounter for supervision of normal pregnancy, unspecified, third trimester (principal); Z3A.36 36 weeks gestation of pregnancy; Z36.85 Encounter for antenatal screening for Streptococcus B | CPT/HCPCS: 87081 ==

== ENCOUNTER 2023-05-16 15:40 | Outpatient (CLI) | payer BC, SELFPAY ==
[2023-05-16 16:14] VITALS: BP 144/80; PULSE 66
[2023-05-16 16:15] VITALS: BP 144/80; PULSE 66
[2023-05-16 16:16] LABS: HCT 35.8 % (36.0-46.0); HGB 12.3 g/dL (11.2-15.7); MCH 33.3 pg (27.0-33.0); MCHC 34.4 % (32.0-36.0); MCV 97 fL (80-95); MPV 9.5 fL (8.0-11.0); Platelet Count 204 10^3/uL (130-400); RBC 3.69 10^6/uL (3.93-5.22); RDW 12.6 % (11.7-14.6); RDW-SD 43.9 fL; WBC 7.24 10^3/uL (4.4-10.8)
[2023-05-16 16:31] VITALS: BP 140/95; PULSE 68
[2023-05-16 16:31] LABS: ALT 15 U/L (14-59); AST 19 U/L (15-37); Albumin 2.5 g/dL (3.4-5.0); Alkaline Phosphatase 157 U/L (46-116); Anion Gap 12.7 mmol/L (3-11); BUN 18 mg/dL (7-18); Bilirubin, Total 0.2 mg/dL (0.2-1.0); CO2 22.3 mmol/L (21.0-32.0); CREATININE 0.9 mg/dL (0.55-1.02); Calcium 8.7 mg/dL (8.5-10.1); Chloride 104 mmol/L (98-107); Estimated GFR 83.92 (mL/min/1.73m2); Glucose 123 mg/dL (74-106); Potassium 3.9 mmol/L (3.5-5.1); Sodium 139 mmol/L (136-145); Total Protein 6.7 g/dL (6.4-8.2)
--- NOTE | 2023-05-16 16:45 | W.OBNST ---
Date of service: 05/16/23 Time of Service: 16:35 NST Evaluation Reason for NST Reasons for Nonstress Test: GESTATIONAL HYPERTENSION Test and Monitor Explained Test/Monitor Explained: Test Explained, Monitor Explained and Patient Verbalized Understanding Vital Signs Blood Pressure: 144/80 Pulse: 66 Urine Results Urine Protein: Negative Urine Ketones: Negative Urine Glucose: Negative Urine Blood: Negative NST Information Date on Monitor: 05/16/23 Time on Monitor: 16:03 Date off Monitor: 05/16/23 Time off Monitor: 16:33 Total Time on Monitor: 30 NST Interventions: PO Hydration NST Evaluation Patient States Movement: Present FHR Baseline: 120 Variability: Moderate 6-25 bpm Accelerations: 15x15 Decelerations: None NST Results: Reactive Note Ultrasound Done: N/A. NST Note Note: NST due to elevated BP today. Labs negative for urine protein, CBC and CMP WNL. Nayana would prefer to avoid induction but is agreeable to it if BP remains elevated. She checks BP at home and it was 120/80 this morning. Denies FREED, visual disturbance or epigastric pain. Consult with Dr. Gunter done, will allow patient to go home and return Sunday for NST and likely IOL. I reviewed that if symptoms of pre-eclampsia occur or BP at home is 150/90 she should call prior to Sunday. Agrees to this plan. RHONA NST Reviewed and Verified by: Jlil Soto
[2023-05-16 16:48] VITALS: BP 144/80; PULSE 66
== END 2023-05-16 16:40 ==
LOC: BCD 15:42 → OBS 16:10
PROVIDERS: PCP Nurse Practitioner Family; Visit Provider Advanced Practice Midwife
DX: O13.3 Gestational [pregnancy-induced] hypertension without significant proteinuria, third trimester (principal); Z3A.37 37 weeks gestation of pregnancy
CPT/HCPCS: 36415; 80053; 85027; 59025

== ENCOUNTER 2023-05-18 09:22 | Inpatient (IN) | payer BC, SELFPAY ==
[2023-05-18] VITALS (16 sets, daily range): BP systolic 127–144; BP diastolic 71–96; PULSE 54–80; RESP 12–17; TEMP 36.8–37.1; O2SAT 99
--- NOTE | 2023-05-18 09:20 | W.OBNST ---
Date of service: 05/18/23 Time of Service: 09:20 NST Evaluation Reason for NST Reasons for Nonstress Test: GESTATIONAL HYPERTENSION Gestational Age Gestational Age in Weeks and Days: 38 Weeks and 4Days Test and Monitor Explained Test/Monitor Explained: Test Explained, Monitor Explained and Patient Verbalized Understanding Vital Signs Blood Pressure: 144/85 Pulse: 70 Temperature: 98.8 F Urine Results Urine Protein: Negative Urine Ketones: Negative Urine Glucose: Negative Urine Blood: Negative NST Information Date on Monitor: 05/18/23 Time on Monitor: 08:35 Date off Monitor: 05/18/23 Time off Monitor: 09:00 Total Time on Monitor: 25 NST Interventions: None NST Evaluation Patient States Movement: Present FHR Baseline: 130 Variability: Moderate 6-25 bpm Accelerations: 15x15 Decelerations: None NST Results: Reactive Note Ultrasound Done: N/A. NST Note Note: NST is reactive and reassuring. Plan is admit and move forward with induction of labor. RHONA NST Reviewed and Verified by: Jill Soto
[2023-05-18] MEDS: miSOPROStol 25 MCG TAB 50 MCG PO ×2 (09:53→14:11)
[2023-05-18 09:55] LABS: HCT 37.2 % (36.0-46.0); HGB 12.5 g/dL (11.2-15.7); MCH 32.9 pg (27.0-33.0); MCHC 33.6 % (32.0-36.0); MCV 98 fL (80-95); MPV 9.4 fL (8.0-11.0); Platelet Count 227 10^3/uL (130-400); RDW 12.5 % (11.7-14.6); RDW-SD 44.9 fL; WBC 7.48 10^3/uL (4.4-10.8)
--- NOTE | 2023-05-18 09:59 | W.PM.OBHPL1 ---
Date of service: 05/18/23 Time of Service: 09:59 Assessment and Plan Assessment and plan (1) Gestational hypertension, third trimester: Status: Acute Assessment and plan: 1. NST and admit for induction of labor 2. Risks, benefits and alternatives to induction reviewed, patient verbalizes understanding and agrees to plan 3. CBC, CMP, Type and Screen and Pro/creat ratio to be sent 4. Will place IV site 5. Plan misoprostol 50 mcg PO and reassess in 4 hours or prn. 6. OB Physician shank boner, Genesis Saucedo is aware of admisstion and plan for induction. KH OB-HPI Labor/Delivery History of Present Illness Reason for Visit: NST Chief Complaint: Scheduled Induction of Labor Indication for Induction: Gestational Hypertension. JOAQUIN Calculator Estimated Delivery Date Method Current WG Current Estimate 05/28/23 LMP (Certain) 38w 4d Other Estimates 06/03/23 Ultrasound #1 37w 5d History of Present Expected Delivery Route/Plan - CNM FOB - Jean Marshall BB yes to circ Unmedicated if things move along, hired a supervisor special services GBS negative Specific Issues/Plan 1. Advanced maternal age, will take low dose ASA 1a. [facility] level 2 scan nml, anterior placenta, no f/up indicated 2. Hx of gHTN, AMA and FOB had heart defect repaired at age 28 (Amos Parkinson White) 3. Possible chronic hypertension, stage I 4. Pelvic floor PT referral due to pelvic floor dysfunction 5. cfDNA Low Risk, male 6. Flu vaccine given 12/12, COVID booster given @ 15 wks 7. CMP & 24 hour urine for baseline=nml (volume 1750 ml, total prot 117), 8. COVID at 18 wks, mild sx, offered & accepts Paxlovid 9. Tdap given IM Assessment: History Reviewed & Current Narrative: Nayana and Jean present for NST and induction of labor due to gestational hypertension at 38+ weeks gestation. She had GHTN with last and was induced at 40 weeks due to that. She is feeling well, no symptoms of pre-eclampsia. She had NST and labs for Pre-E 2 days ago, all normal except elevated BP. Today she presented with continued elevated BP 144/85 on arrival. We discussed that GHTN has increased risk for pre-eclamapsia to develop and that induction of labor is recommended. She agrees to this plan. Denies questions about this process as she has been through it in past. KH Informed Consent Informed Consent: Augmentation of Labor, Induction of Labor and Risk,Benefits,Alternatives Discussed Review of Systems All systems reviewed & are unremarkable except as noted in HPI and below PFSH All Active Problems (Updated 05/18/23 @ 10:10 by Jill Soto CNM) Gestational hypertension, third trimester (Acute) Elevated blood pressure affecting in third trimester, antepartum (Acute) COVID-19 affecting in second trimester (Acute) History of gestational hypertension (Acute) Family history of congenital heart defect (Acute) Advanced maternal age in multigravida (Acute) (Acute) Pelvic floor dysfunction in female (Chronic) Medical History Early stage of Recurrent loss without current Gestational hypertension Raynauds phenomenon Syncope Syncopal episode while on a flight. Negative neuro eval at [facility] Surgical History S/P LASIK surgery of both eyes Family History Mother Pre-eclampsia Ovarian cyst Father Hyperlipidemia Sister Lesley's disease Maternal Grandfather Melanoma Maternal Grandmother , in her 70s of stroke Stroke Paternal Grandfather , in his 90s No problems noted. Paternal Grandmother , mid 80s Dementia Breast cancer Social History Smoking/Tobacco Use Status: Never Smoking risk assessment performed?: Yes Alcohol Intake: current Alcohol Intake frequency: a few times a month Alcohol type: wine Details: Not drinking now during Drug use: Never Caregiver/Support person: No Household members: spouse Housing: house Communication Needs: None Do you need help understanding health information?: Never current occupation: [employer] Pets and animals: Yes Pets and animals: dog(s) Sexually active: Yes Do you think of yourself as: straight/heterosexual Current gender identity: female How often do you talk on the phone with friends or family?: once per week How often do you get together with friends or relatives?: three or more times per week How often do you attend latter-day or anglican services?: 1-3 times per year Do you belong to any clubs or organized social groups?: yes Panel score (0-1 are the most socially isolated patients): 2 What type of physical activity do you participate in: bicycling, other Details: skiing, hiking and running Duration: 45-60 minutes/day Frequency: daily Ritu/Samaritan: None Special ritu needs: No Seatbelt use: always Helmet use: Yes Helmet use: always Drive intox or ride w/intox garbage truck driver: No History History 4 Para 1 Hx # Term Pregnancies 1 Multiple births 0 Hx # Pregnancies 0 Ectopic pregnancies 0 AB induced 0 Hx Number of Living Children 1 AB spontaneous 2 Past Pregnancies Del. Date GA/Weeks # Preg Succ Route Wgt Sex Labor Lgth Anesthesia Location Prov Complic 11/26/17 6 No No 09/28/19 40 No vaginal Female 6 hours Lesly 11/30/21 6 No No Delivery Date: 11/26/17 Last Updated by: Jill Soto CNM SAB no complications Delivery Date: 09/28/19 Last Updated by: Jill Diaz CNM IOL for gestational hypertension, elevated liver enzymes, elevated uric acid. heavy bloody show prior to delivery. [place] Delivery Date: 11/30/21 Last Updated by: Jill Soto CNM SAB no complications Meds Allergies and Home Medications Allergies Allergy/AdvReac Type Severity Reaction Status Date / Time cats Allergy Mild Other (See Uncoded 05/18/23 10:08 Comment) seasonal Allergy Mild lots of Uncoded 05/18/23 10:08 congestion, watery eyes Home Medications Medication Instructions Recorded Confirmed Type aspirin 81 mg tablet,delayed 81 mg PO DAILY 10/10/22 05/16/23 History release vits no.126-ferrous fum tab PO QDAY 10/10/22 05/16/23 History 28 mg iron-folic acid 800 mcg tablet (Classic ) Exam Physical Exam Vital signs: Pulse BP 70 144/85 H 05/18/23 08:53 05/18/23 08:53 Vital Signs Reviewed: Yes Constitutional Constitutional: no acute distress and average body habitus Detailed Labor and Delivery Exam Dilation: 1 Effacement (%): 70 station: -1 Position: TRAVIS Cervix position: posterior Consistency: soft Jamison Score: Cervical Points Exam 0 1 2 3 Dilation Closed 1-2cm 3-4 cm 5-6cm Effacement 0-30% 40-50% 60-70% 80% Consistency Firm Medium Soft Station -3 -2 -1,0 +1,+2 Position Posterior Mid Anterior JAMISON Score(Cervical Ripeness Score): 7 Amniotic Membrane Status: Intact Monitor Mode: External Contraction Frequency(min): irregular Contraction Duration(sec): irregular Contraction Intensity: Mild Fetus A Heart Rate Baseline: 120 Monitor Accelerations: 15 X 15 Monitor Decelerations: None Variability: Moderate (6-25 BPM) Categories: Category I Est. Weight: 7 lb HEENT Exam HEENT Exam: Normal Neck Exam Neck Exam: Normal Chest/Brest/Axilla Exam Chest Exam: Normal Breast Exam Breast Exam: Not Done Respiratory Exam Respiratory Exam: Normal Cardiovascular Exam Cardiovascular Exam: Normal (mild BP elevations 140/80's-90's) Abdominal Exam Abdominal Exam: Normal (gravid uterus, size equals dates) Rectal Exam Rectal Exam: Not Done Exam Exam: Normal Detailed Exam External: Present normal urethra appearance Perineum Description: Normal Extremities Exam Extremities Exam: Normal (no edema, no calf tenderness) Back/Spine/Pelvis Exam Back Exam: Normal Skin Exam Skin Exam: Normal Neurological Exam Neurological Exam: Normal (denies symptoms of Pre-eclampsia) Psychiatric Exam Psychiatric Exam: Normal Results Results Group Beta Strep: Negative Blood Type: B+ Rubella Status: Immune Varicella Immunity: Immune Lab Results: CF neg, SMA neg, cfDNA low risk male, Hep B and C neg, Syphilis neg, HIV neg, GC CT neg, 1 hour 123 Abnormal Lab Findings: Abnormal Labs 05/18/23 09:45 RBC 3.80 L MCV 98 H Risk Assessment Risk for Shoulder Dystocia Historical/Initial OB: NEGATIVE FOR: Pelvic Abnormality, Pre- BMI>30, Previous Shoulder Dystocia or Previous Macrosomia 36 Weeks: NEGATIVE FOR: Current Gestational DM, EFW>4500gms or Maternal Weight Gain>40lbs Delivery Plan @ 36wks: NVD Delivery Plan @ 40 wks: induction with NVD. Risk for Pre-Eclampsia Date Initiated/Initials: taking since 12 wks Yes, if one or more: NEGATIVE FOR: Hx Pre-E/Gest HTN, Chronic HTN, Multiple Gestation, Pre-gestational DM, Renal Disease, Systemic Lupus or APA Syndrome Yes, if 2 or more: POSITIVE FOR: Age>= 35 yrs and Mother/Sister w/ Pre-E; NEGATIVE FOR: Nulliparity, >10yr btwn pregnancies, BMI>30, ethinicty or Previous IUGR Risk for Post- Hemorrhage Initial: NEGATIVE FOR: Multiple Gestation, Previous PPH, Known Clotting Deficiency, Grand Multiparity or Anticoagulation 36 Weeks: NEGATIVE FOR: Anemia, hgb<10, Low platelets(thrombocytopenia), Gestational HTN or Pre-E, Polyhydraminios or EFW>4500gms 40 Weeks: POSITIVE FOR: Gestation HTN or Pre-E; NEGATIVE FOR: Anemia, hgb<10, Low platelets (thrombocytopenia), Polyhydraminios or EFW>4500gms Counseled re: Active Management: Yes Date/Initials: 05/18/23 KH Risks Reviewed Risks Reviewed Upon Admission: Yes (At risk for PPH due to GHTN, IV site placed and reviewed medications PP)
[2023-05-18 10:09] LABS: ALT 17 U/L (14-59); AST 24 U/L (15-37); Albumin 2.7 g/dL (3.4-5.0); Alkaline Phosphatase 163 U/L (46-116); Anion Gap 8.2 mmol/L (3-11); BUN 17 mg/dL (7-18); Bilirubin, Total 0.3 mg/dL (0.2-1.0); CO2 25.8 mmol/L (21.0-32.0); CREATININE 0.9 mg/dL (0.55-1.02); Calcium 9.2 mg/dL (8.5-10.1); Chloride 104 mmol/L (98-107); Estimated GFR 83.92 (mL/min/1.73m2); Glucose 81 mg/dL (74-106); Potassium 4.3 mmol/L (3.5-5.1); Sodium 138 mmol/L (136-145)
[2023-05-18] MEDS: Normal Saline Flush 10 ML SYR IVP ×2 (10:27→16:00)
[2023-05-18 11:25] LABS: PROTEIN < 6.0 mg/dL
--- NOTE | 2023-05-18 13:53 | PGE_ITS ---
Date of service: 05/18/23 Time of Service: 13:53 Informed Consent Informed Consent: Augmentation of Labor, Induction of Labor and Risk,Benefits,Alternatives Discussed Pelvic Exam Comments: deferred Contractions Monitor Mode: Palpation Contraction Frequency(min): irregular Contraction Duration(sec): 30-50 Intensity: Mild/Moderate Fetus A Monitor: Novii Heart Rate Baseline: 120 Variability: Moderate (6-25 BPM) Categories: Category I Accelerations: Present Decelerations: None Amniotic Membrane Status: Intact Assessment and Plan Assessment and plan (1) Gestational hypertension, third trimester: Status: Acute Assessment and plan: 1. Will give next dose of Misoprostol and reassess in 4 hours or prn. KH Objective Abnormal lab results 05/18/23 Range/Units 09:45 RBC 3.80 L (3.93-5.22) 10^6/uL MCV 98 H (80-95) fL Alkaline Phosphatase 163 H (46-116) U/L Albumin 2.7 L (3.4-5.0) g/dL Temp Pulse Resp BP 98.2 F 56 L 12 127/79 05/18/23 10:32 05/18/23 10:35 05/18/23 10:32 05/18/23 10:35 Laboratory Results WBC 7.48 10^3/uL (4.4-10.8) 05/18/23 09:45 RBC 3.80 10^6/uL (3.93-5.22) L 05/18/23 09:45 Hgb 12.5 g/dL (11.2-15.7) 05/18/23 09:45 Hct 37.2 % (36.0-46.0) 05/18/23 09:45 MCV 98 fL (80-95) H 05/18/23 09:45 MCH 32.9 pg (27.0-33.0) 05/18/23 09:45 MCHC 33.6 % (32.0-36.0) 05/18/23 09:45 RDW 12.5 % (11.7-14.6) 05/18/23 09:45 Plt Count 227 10^3/uL (130-400) 05/18/23 09:45 MPV 9.4 fL (8.0-11.0) 05/18/23 09:45 Sodium 138 mmol/L (136-145) 05/18/23 09:45 Potassium 4.3 mmol/L (3.5-5.1) 05/18/23 09:45 Chloride 104 mmol/L (98-107) 05/18/23 09:45 Carbon Dioxide 25.8 mmol/L (21.0-32.0) 05/18/23 09:45 Anion Gap 8.2 mmol/L (3-11) 05/18/23 09:45 BUN 17 mg/dL (7-18) 05/18/23 09:45 Creatinine 0.9 mg/dL (0.55-1.02) 05/18/23 09:45 Est GFR (CKD-EPI 2020) 83.92 (mL/min/1.73m2) 05/18/23 09:45 Glucose 81 mg/dL (74-106) 05/18/23 09:45 Calcium 9.2 mg/dL (8.5-10.1) 05/18/23 09:45 Total Bilirubin 0.3 mg/dL (0.2-1.0) 05/18/23 09:45 AST 24 U/L (15-37) 05/18/23 09:45 ALT 17 U/L (14-59) 05/18/23 09:45 Alkaline Phosphatase 163 U/L (46-116) H 05/18/23 09:45 Total Protein 7.0 g/dL (6.4-8.2) 05/18/23 09:45 Albumin 2.7 g/dL (3.4-5.0) L 05/18/23 09:45 Ur Random Creatinine 24.70 mg/dL 05/18/23 10:20 U Random Total Protein < 6.0 mg/dL 05/18/23 10:20 U [place] Prot/Creat Ratio 05/18/23 10:20 Patient ABO/Rh B Positive 05/18/23 09:45 Antibody Screen NEGATIVE 05/18/23 09:45 Subjective Interval history since last seen: Nayana is having some tightening but no discomfort. Would like another dose of Misoprostol at this time instead of expectant management or pitocin. Results Hemoglobin/Hematocrit: Hgb 12.5 g/dL (11.2-15.7) 05/18/23 09:45 Hct 37.2 % (36.0-46.0) 05/18/23 09:45 Abnormal Lab Findings: Abnormal Labs 05/18/23 09:45 RBC 3.80 L MCV 98 H Alkaline Phosphatase 163 H Albumin 2.7 L
--- NOTE | 2023-05-18 19:15 | OBVDS_ITS ---
Date of service: 05/18/23 Time of Service: 19:15 OB Labor/ Delivery Information Baby A Delivery Delivery Method: Spontaneaous Presentation: Cephalic Cephalic Position: Vertex Vertex Position: Left Occipital Anterior Cord Description-Baby A: 3 Vessels, Nuchal Cord (X 1 tight but able to be reduced before shoulders delivered) and Clamped/Cut (after 5 minutes and pulsations ceased) Amniotic Fluid: Clear Estimated Blood Loss: 100 Delivery Outcome: Liveborn Transferred: Remains with Mother Note: Nayana presented for induction of labor due to gestational hypertension. She had 2 doses of Misoprostol 50 mcg 4 hours apart with good response. FHR tracing CAT I with occasional variable decelerations. At 1620 she had SROM and active labor began. She had involuntary urge to push at 1838. Second stage huddle was held. FHR 120, bladder had been emptied recently, IV access was lost at that time and as she had low to mod risk based on induction only, we opted to not place IV while she was pushing. Baby Pantera Iqbal was born at 1852 over essentially intact perineum with slight abrasion at vaginal introitus. Tight nuchal cord X1 was noted and was able to be reduced before shoulders delivered. Baby was placed skin to skin with excellent family bonding noted. score 8/9. When pulsations ceased in the cord, it was double clamped and then cut by FOB. Placenta delivered spontaneously, intact at 1904 with gentle maternal pushing effort. Fundus firmed to U with massage, minimal vaginal bleeding noted. Sponge, instrument count are correct. 3 vessel cord noted. Nayana and Jean plan to breast feed their son and plan circumcision for him before discharge. Expect 24-48 hour PP stay. Providers Nurse Security Assistant: Jill Soto Nurse: Anuj Angelo Nurse: Valentina Boles Labor/Delivery Information Number of Babies in Womb: 1 Steroids Given: None Reason Steroids Not Administered: N/A Group Beta Strep: Negative Antibiotics Administered: No Rubella Status: Immune Blood Type: B+ Varicella Immunity: Immune Shoulder Dystocia: No Stages of Labor Onset of Labor Date: 05/18/23 Onset of Labor Time: 16:20 Complete Dilatation Date: 05/18/23 Complete Dilatation Time: 18:38 Labor - Stage 1 Duration: 2 hours and 18 minutes ROM Baby A: 05/18/23 ROM Baby A: 16:20 ROM Total Time- Baby A: [id number] Delivery Date-Baby A: 05/18/23 Delivery Time-Baby A: 18:52 Labor Stage 2 Duration: 14 minutes Placenta Delivery Date-Baby A: 05/18/23 Placenta Delivery Time-Baby A: 19:04 Labor-Stage 3 Duration: 12 minutes Total Length of Labor-Baby A: 2 hours and 32 minutes Placenta Status: Delivered Baby A Gender: Male Gestational Status: Early Term (37-38.6 wks) Gestational Age in Weeks/Days: 38 Weeks and 4 Days Score-1 Minute Interval(Baby A) Heart Rate-1 minute: 100 BPM or Greater Respiratory Effort- 1 minute: Spontaneous/Strong Cry Muscle Tone-1 minute: Active Movement Reflex Response-1 minute: Minimal Response Color-1 minute: Bluish Hands or Feet Total Score-1 minute: 8 Score-5 Minute Interval(Baby A) Heart Rate- 5 minute: 100 BPM or Greater Respiratory Effort-5 minute: Spontaneous/Strong Cry Muscle Tone-5 minute: Active Movement Reflex Response-5 minute: Prompt Response Color-5 minute: Bluish Hands or Feet Total Score- 5 minute: 9
[2023-05-18] MEDS: Ibuprofen 600 MG TAB PO (19:24)
[2023-05-18] MEDS: Acetaminophen 325 MG TAB 650 MG PO (20:33)
[2023-05-19] MEDS: Ibuprofen 600 MG TAB PO ×4 (01:29→21:00)
[2023-05-19 09:30] VITALS: BP 136/84; PULSE 60; RESP 18; TEMP 36.7
[2023-05-19 19:40] VITALS: BP 135/84; PULSE 62; RESP 17; TEMP 36.7; O2SAT 99
[2023-05-20] MEDS: Ibuprofen 600 MG TAB PO (04:44)
[2023-05-20 08:15] VITALS: BP 134/89; PULSE 50; RESP 17; TEMP 36.6
--- NOTE | 2023-05-20 08:54 | DSE_ITS ---
Date of service: 05/20/23 Time of Service: 08:54 DS: Diagnosis Discharge Diagnosis (1) care following vaginal delivery: Status: Acute Asessment and Plan: 1. Normal PP course since delivery. 2. Breast feeding is well established 3. Planning vasectomy (consult scheduled) and will use Depo Provera for short time until Vasectomy process is complete. 4. Reviewed PP warning signs and PPD warning signs and when to call 5. RTO 2 and 6 weeks PP or prn. 6. Patient will call if BP elevations above 150/90, has cuff at home or if signs of pre-eclampsia occur. KH (2) Lactating mother: Status: Acute Asessment and Plan: 1. Breast feeding is well established 2. Will follow up with pediatrics as scheduled or prn. 3. Follow up with CNM 2 and 6 weeks PP. Discharge Plan Disposition Patient Disposition: Home Condition: Good Discharge Details Reason For Visit: Gestational Hypertension in third trimester Admit Date/Time: 05/18/23 09:22 Admit Provider: Jill Soto Attending Provider: Jill Soto [facility] Hospital Course Hospital Course: Induction of labor for gestational hypertension without pre-eclampsia at 38w4d. Nayana received 2 doses of Misoprostol 50 mcg and had SROM then had precipitous labor and . NVD over small vaginal abrasion. Normal PP course and breast feeding is well established. Planning vasectomy for contraception and Nayana may choose depo provera for a dose or 2 while awaiting completion of that process. Will RTO 2 and 6 weeks. Home Meds and New Rx's Prescriptions: Continued Classic 28 mg iron- 800 mcg tablet PO QDAY Discontinued aspirin 81 mg tablet,delayed release (DR/EC) 81 mg PO DAILY Discharge Instructions Instructions: Medroxyprogesterone (By injection), Depression (GEN) Stand Alone Forms: BC Instructions, BC Post Vaginal Deliver Activity:: Activity as Tolerated Equipment/Supplies:: No Equipment Needed Diet:: As Tolerated Discharge Orders Discharge Orders: Discharge Order (Routine); Ordered 05/20/23 Ordered By: Jill Soto OB:DS Summary Summary Vaginal Delivery Method: Spontaneaous Episiotomy Description: None Laceration Description: None Laceration Extension: N/A Contraception Discussed Contraception Discussed: Yes Contraceptive Plan: Medroxyprogesterone and Vasectomy, Infant Gender-Baby A: Male (Orie) weight: 6 lb 7.882 oz Status at Discharge Functional status at discharge: independent ambulation Overall status at discharge: patient is back to baseline Mental Status: mental status grossly normal Speech and Movement: speech and movement normal Mood: congruent mood Affect: normal affect Time Spent with Patient providing and/or coordinating discharge services: Less than 30 minutes Quality:[facility] Health Related Social Needs: No Data to Display Exam Physical Exam Vital signs: Temp Pulse Resp BP Pulse Ox 98.1 F 62 17 135/84 99 05/19/23 19:40 05/19/23 19:40 05/19/23 19:40 05/19/23 19:40 05/19/23 19:40 Vital Signs Reviewed: Yes Narrative: BP this morning 134/89, P 50 Constitutional Constitutional: no acute distress, average body habitus and cooperative HEENT Exam HEENT Exam: Normal Neck Exam Neck Exam: Normal (normal visual inspection) Respiratory Exam Respiratory Exam: Normal Cardiovascular Exam Cardiovascular Exam: Normal Abdominal Exam Abdomen: Other (normal exam) Fundal Exam Fundus: Below Umbilicus and Firm Comment: small lochia noted. KH Rectal Exam Rectal Exam: Not Done Exam Perineum: Intact and Normal Extremities Exam Extremity Exam: Normal (denies calf tenderness) and Full ROM Back/Spine/Pelvis Exam Back Exam: Normal Skin Exam Skin Exam: Normal Neurological Exam Neurological Exam: Normal Psychiatric Exam Psychiatric Exam: Normal PFSH All Active Problems Lactating mother (Acute) care following vaginal delivery (Acute) (Acute) Pelvic floor dysfunction in female (Chronic) Medical History Advanced maternal age in multigravida Family history of congenital heart defect History of gestational hypertension COVID-19 affecting in second trimester Elevated blood pressure affecting in third trimester, antepartum Gestational hypertension, third trimester Early stage of Recurrent loss without current Gestational hypertension Raynauds phenomenon Syncope Syncopal episode while on a flight. Negative neuro eval at [facility] Surgical History S/P LASIK surgery of both eyes Family History Mother Pre-eclampsia Ovarian cyst Father Hyperlipidemia Sister Lesley's disease Maternal Grandfather Melanoma Maternal Grandmother , in her 70s of stroke Stroke Paternal Grandfather , in his 90s No problems noted. Paternal Grandmother , mid 80s Dementia Breast cancer Social History Smoking/Tobacco Use Status: Never Smoking risk assessment performed?: Yes Alcohol Intake: current Alcohol Intake frequency: a few times a month Alcohol type: wine Details: Not drinking now during Drug use: Never Caregiver/Support person: No Household members: spouse Housing: house Communication Needs: None Do you need help understanding health information?: Never current occupation: [employer] Pets and animals: Yes Pets and animals: dog(s) Sexually active: Yes Do you think of yourself as: straight/heterosexual Current gender identity: female How often do you talk on the phone with friends or family?: once per week How often do you get together with friends or relatives?: three or more times per week How often do you attend scientology or protestant services?: 1-3 times per year Do you belong to any clubs or organized social groups?: yes Panel score (0-1 are the most socially isolated patients): 2 What type of physical activity do you participate in: bicycling, other Details: skiing, hiking and running Duration: 45-60 minutes/day Frequency: daily Ritu/Bahai: None Special ritu needs: No Seatbelt use: always Helmet use: Yes Helmet use: always Drive intox or ride w/intox cmv driver: No Do you feel safe at home: Yes History History 4 Para 1 Hx # Term Pregnancies 1 Multiple births 0 Hx # Pregnancies 0 Ectopic pregnancies 0 AB induced 0 Hx Number of Living Children 1 AB spontaneous 2 Past Pregnancies Del. Date GA/Weeks # Preg Succ Route Wgt Sex Labor Lgth Anesth esia Location [facility] 11/26/17 6 No No 09/28/19 40 No vaginal Female 6 hours Lesly 11/30/21 6 No No Delivery Date: 11/26/17 Last Updated by: Jill Soto CNM SAB no complications Delivery Date: 09/28/19 Last Updated by: Jill Diaz CNM IOL for gestational hypertension, elevated liver enzymes, elevated uric acid. heavy bloody show prior to delivery. [place] Delivery Date: 11/30/21 Last Updated by: Jill Soto CNM SAB no complications DS: Data Vitals/I&O Vitals and I&O: Vital Signs Temperature 98.1 F 05/19/23 19:40 Temperature 98.8 F 05/18/23 09:21 Temperature Source Oral 05/19/23 19:40 Pulse 62 05/19/23 19:40 Pulse 70 05/18/23 09:21 Pulse Rhythm Regular 05/19/23 19:40 Respiratory Rate 17 05/19/23 19:40 Respiratory Depth Normal 05/19/23 19:40 Blood Pressure 135/84 05/19/23 19:40 Blood Pressure 144/85 05/18/23 09:21 Blood Pressure Mean 101 05/19/23 19:40 Pulse Oximetry 99 05/19/23 19:40 Oxygen Delivery Method Room Air 05/18/23 10:32 Oxygen Flow Rate 0 05/18/23 10:32 Pain Level 3 05/19/23 15:32 Intake & Output 05/19/23 05/19/23 05/20/23 11:59 23:59 11:59 Output Total 800 / 800 Balance -800 / -800 Output: Urine 800 / 800 Other: Urine Color Yellow
== END 2023-05-20 10:45 | disposition home or self-care (01) | DRG 807 ==
LOC: BCD 12:17 → OBS 12:17
PROVIDERS: Admitting Provider Advanced Practice Midwife; PCP Nurse Practitioner Family; Visit Provider Advanced Practice Midwife
DX: O13.4 Gestational [pregnancy-induced] hypertension without significant proteinuria, complicating childbirth (principal); Z37.0 Single live birth; Z3A.38 38 weeks gestation of pregnancy; O69.1XX0 Labor and delivery complicated by cord around neck, with compression, not applicable or unspecified; I73.00 Raynaud's syndrome without gangrene; O99.42 Diseases of the circulatory system complicating childbirth
CPT/HCPCS: 36415; 80053; 85027; 86850; 86900; 86901; 82565; 84156; J3490

== ENCOUNTER 2023-05-24 23:32 | Outpatient (CLI) | payer BC, SELFPAY ==
[2023-05-25 00:40] VITALS: BP 135/83; PULSE 75; RESP 16; TEMP 37; O2SAT 97
[2023-05-25 01:15] LABS: HCT 34.1 % (36.0-46.0); HGB 11.7 g/dL (11.2-15.7); MCH 33.4 pg (27.0-33.0); MCHC 34.3 % (32.0-36.0); MCV 97 fL (80-95); MPV 8.5 fL (8.0-11.0); Platelet Count 231 10^3/uL (130-400); RDW 12.3 % (11.7-14.6); RDW-SD 44.1 fL; WBC 7.26 10^3/uL (4.4-10.8)
[2023-05-25 01:34] LABS: ALT 24 U/L (14-59); AST 23 U/L (15-37); Albumin 2.6 g/dL (3.4-5.0); Alkaline Phosphatase 116 U/L (46-116); Anion Gap 11.8 mmol/L (3-11); BUN 16 mg/dL (7-18); Bilirubin, Total 0.4 mg/dL (0.2-1.0); CO2 22.2 mmol/L (21.0-32.0); Calcium 8.2 mg/dL (8.5-10.1); Chloride 104 mmol/L (98-107); Estimated GFR 73.95 (mL/min/1.73m2); Glucose 120 mg/dL (74-106); LDH 162 U/L (81-234); Potassium 3.7 mmol/L (3.5-5.1); Sodium 138 mmol/L (136-145); Total Protein 6.3 g/dL (6.4-8.2); Uric Acid 5.8 mg/dL (2.6-6.0)
--- NOTE | 2023-05-25 01:47 | HPE_ITS ---
Date of service: 05/25/23 Time of Service: 01:47 Assessment and Plan Assessment and plan (1) History of gestational hypertension: Assessment and plan: BP WNL now. preeclampsia labs ordered (2) Elevated blood pressure affecting in third trimester, antepartum: Status: Acute Assessment and plan: Will continue to assess while awaiting lab results (3) care following vaginal delivery: Status: Acute Assessment and plan: TSH drawn. History of Present Illness History of Present Illness Chief Complaint: pedal edema and not feeling well Narrative: Nayana is who delivered vaginally a baby 7 days ago at [facility] attended by Ela Soto CNM. She is . She experienced chills and achyness late this evening and I was paged at 2330. She was instructed to come to the Center and arrived at 0020, BP 135/83. pulse 75 and temp 98.6. Preeclampsia labwork drawn with TSH. Review of Systems Narrative: Nayana reports that she went for a 20 minute walk with her today. She also picked up her child from school. Cardiovascular Cardiovascular: Denies dyspnea Respiratory Respiratory: Denies cough and Denies dyspnea Comments: Denies dyspnea at rest. Musculoskeletal Comments: pedal edema reported Integumentary/Breasts Comments: well. Reports breast engorgement but denies pain. PFSH All Active Problems (Updated 05/25/23 @ 01:56 by Jill Diaz CNM) Elevated blood pressure affecting in third trimester, antepartum (Acute) Lactating mother (Acute) care following vaginal delivery (Acute) (Acute) Pelvic floor dysfunction in female (Chronic) Medical History Advanced maternal age in multigravida Family history of congenital heart defect History of gestational hypertension COVID-19 affecting in second trimester Elevated blood pressure affecting in third trimester, antepartum Gestational hypertension, third trimester Early stage of Recurrent loss without current Gestational hypertension Raynauds phenomenon Syncope Syncopal episode while on a flight. Negative neuro eval at [facility] Surgical History S/P LASIK surgery of both eyes Family History Mother Pre-eclampsia Ovarian cyst Father Hyperlipidemia Sister Lesley's disease Maternal Grandfather Melanoma Maternal Grandmother , in her 70s of stroke Stroke Paternal Grandfather , in his 90s No problems noted. Paternal Grandmother , mid 80s Dementia Breast cancer Social History Smoking/Tobacco Use Status: Never Smoking risk assessment performed?: Yes Alcohol Intake: current Alcohol Intake frequency: a few times a month Alcohol type: wine Details: Not drinking now during Drug use: Never Caregiver/Support person: No Household members: spouse Housing: house Communication Needs: None Do you need help understanding health information?: Never current occupation: [employer] Pets and animals: Yes Pets and animals: dog(s) Sexually active: Yes Do you think of yourself as: straight/heterosexual Current gender identity: female How often do you talk on the phone with friends or family?: once per week How often do you get together with friends or relatives?: three or more times per week How often do you attend rastafari or muslim services?: 1-3 times per year Do you belong to any clubs or organized social groups?: yes Panel score (0-1 are the most socially isolated patients): 2 What type of physical activity do you participate in: bicycling, other Details: skiing, hiking and running Duration: 45-60 minutes/day Frequency: daily Ritu/Confucianist: None Special ritu needs: No Seatbelt use: always Helmet use: Yes Helmet use: always Drive intox or ride w/intox wagon driver: No Do you feel safe at home: Yes History History 2 4 Para 2 Hx # Term Pregnancies 2 Multiple births 0 Hx # Pregnancies 0 Ectopic pregnancies 0 AB induced 0 Hx Number of Living Children 2 AB spontaneous 2 Past Pregnancies Del. Date GA/Weeks # Preg Succ Route Wgt Sex Labor Lgth Anesth esia Location Prov [facility] 11/26/17 6 No No 09/28/19 40 No vaginal Female 6 hours Lesly 11/30/21 6 No No 05/18/23 38 No Yes vaginal 6 lb 7.88 oz Male 2hrs 32min [facility] Delivery Date: 11/26/17 Last Updated by: Jill Soto CNM SAB no complications Delivery Date: 09/28/19 Last Updated by: Jill Diaz CNM IOL for gestational hypertension, elevated liver enzymes, elevated uric acid. heavy bloody show prior to delivery. [place] Delivery Date: 11/30/21 Last Updated by: Jill Soto CNM SAB no complications Delivery Date: 05/18/23 Last Updated by: Vanessa Martel LPN Induced due to gestational hypertension Meds Allergies and Home Medications Allergies Allergy/AdvReac Type Severity Reaction Status Date / Time cats Allergy Mild Other (See Uncoded 05/18/23 10:08 Comment) seasonal Allergy Mild lots of Uncoded 05/18/23 10:08 congestion, watery eyes Home Medications Medication Instructions Recorded Confirmed Type vits no.126-ferrous fum tab PO QDAY 10/10/22 05/16/23 History 28 mg iron-folic acid 800 mcg tablet (Classic ) Exam Const General: cooperative Orientation: alert Limitations: mental status not altered HENMT Head: normal to inspection Neck Thyroid: thyroid normal Chest Breast palpation: abnormal palpation of the axilla and abnormal palpation of the breast (engorgement left breast full) Resp Effort & Inspection: normal respiratory effort Auscultation: clear to auscultation bilaterally, no rhonchi and no wheezes Cardio Rate: regular rate Rhythm: regular rhythm Heart Sounds: no murmurs GI Palpation: soft and nontender Extrem General: normal to inspection and no edema Psych Appearance: grossly normal Speech and Movement: speech and movement normal Mood: congruent mood Affect: normal affect Results Labs 05/25/23 01:10 05/25/23 01:10 Labs: Laboratory Results - last 24 hr 05/25/23 01:10 WBC 7.26 RBC 3.50 L Hgb 11.7 Hct 34.1 L MCV 97 H MCH 33.4 H MCHC 34.3 RDW 12.3 Plt Count 231 MPV 8.5 Sodium 138 Potassium 3.7 Chloride 104 Carbon Dioxide 22.2 Anion Gap 11.8 H BUN 16 Creatinine 1.0 Est GFR (CKD-EPI 2020) 73.95 Glucose 120 H Uric Acid 5.8 Calcium 8.2 L Total Bilirubin 0.4 AST 23 ALT 24 Alkaline Phosphatase 116 Lactate Dehydrogenase 162 Total Protein 6.3 L Albumin 2.6 L Last Vital Signs Temp 98.6 F 05/25/23 00:40 Pulse 75 05/25/23 00:40 Resp 16 05/25/23 00:40 BP 135/83 05/25/23 00:40 Pulse Ox 97 05/25/23 00:40 Time Spent Time spent with Patient: <40 minutes Time was spent: preparing to see the patient(eg.review tests), obtaining and/or reviewing separately otained hiistory, ordering medications,tests, procedures, indepentently interpreting results, counseling the patient and care coordination
--- NOTE | 2023-05-25 01:59 | W.PM.DS.N ---
Date of service: 05/25/23 Time of Service: 01:59 DS: Diagnosis Discharge Diagnosis (1) History of gestational hypertension: Asessment and Plan: Nayana fell asleep while awaiting lab results and was resting comfortably on her side. I reviewed normal BP and preeclampsia lab results with Nayana. (2) care following vaginal delivery: Status: Acute Asessment and Plan: We discussed her increased activity today may have contributed to fatigue. I encouraged no activity tomorrow ad frequent rest periods with her legs elevated. I reviewed precautions and encouraged her to call back if she experiences worsening edema, shortness of breath, heart palpitations or worsening headache. (3) Engorgement of breast: Status: Acute Asessment and Plan: I recommended ice to breasts, rest tonight and tomorrow and frequent nursing. Inflammatory process of engorgement explained. I also recommended taking ibuprofen or aleve tonight as she reported that she has not taken any analgesic. Discharge Plan Disposition Patient Disposition: HOME Condition: Good Discharge Details Reason For Visit: NST Attending Provider: Jill Diaz Primary Care Provider: Jody Fofana Home Meds and New Rx's Prescriptions: No Action Classic 28 mg iron- 800 mcg tablet PO QDAY Discharge Instructions Activity:: Activity as Tolerated Equipment/Supplies:: No Equipment Needed Diet:: As Tolerated Discharge Orders Discharge Orders: Discharge Order (Routine); Ordered 05/25/23 Ordered By: Jill Diaz Discharge Data Discharge Date/Time-TO BE ENTERED AT DEPARTURE: 05/24/23 23:33 Discharge Physician: Jill Diaz DS: Summary Time Spent with Patient providing and/or coordinating discharge services: Less than 30 minutes Status at Discharge Functional status at discharge: independent ambulation Overall status at discharge: patient is back to baseline Mental Status: mental status grossly normal Speech and Movement: speech and movement normal Mood: congruent mood Affect: normal affect Quality:SDOH Health Related Social Needs: No Data to Display Exam Narrative Exam Narrative: Nayana reports a mild headache. She denies chills currently but she reports that she had them earlier. Chest Breast palpation: abnormal palpation of the breast (engorgement, left more than right. No dominant lumps) Resp Effort & Inspection: normal respiratory effort Cardio Rate: regular rate Rhythm: regular rhythm Heart Sounds: no murmurs Extrem General: normal to inspection and no edema Psych Appearance: grossly normal Mental Status: mental status grossly normal Speech and Movement: speech and movement normal Mood: congruent mood Affect: normal affect DS: Data Vitals/I&O Vitals and I&O: Vital Signs Temperature 98.6 F 05/25/23 00:40 Temperature Source Oral 05/25/23 00:40 Pulse 75 05/25/23 00:40 Respiratory Rate 16 05/25/23 00:40 Blood Pressure 135/83 05/25/23 00:40 Pulse Oximetry 97 05/25/23 00:40 Oxygen Delivery Method Room Air 05/25/23 00:40 Oxygen Flow Rate 0 05/25/23 00:40 Data Completed and Pending Labs on day of discharge: Labs from last 24 hours 05/25/23 01:10 WBC 7.26 RBC 3.50 L Hgb 11.7 Hct 34.1 L MCV 97 H MCH 33.4 H MCHC 34.3 RDW 12.3 Plt Count 231 MPV 8.5 Sodium 138 Potassium 3.7 Chloride 104 Carbon Dioxide 22.2 Anion Gap 11.8 H BUN 16 Creatinine 1.0 Est GFR (CKD-EPI 2020) 73.95 Glucose 120 H Uric Acid 5.8 Calcium 8.2 L Total Bilirubin 0.4 AST 23 ALT 24 Alkaline Phosphatase 116 Lactate Dehydrogenase 162 Total Protein 6.3 L Albumin 2.6 L TSH 1.60 PFSH All Active Problems (Updated 05/25/23 @ 02:07 by Jill Diaz CNM) Engorgement of breast (Acute) Elevated blood pressure affecting in third trimester, antepartum (Acute) Lactating mother (Acute) care following vaginal delivery (Acute) Pelvic floor dysfunction in female (Chronic) Medical History (Updated 05/25/23 @ 02:07 by Jill Diaz CNM) Advanced maternal age in multigravida Family history of congenital heart defect History of gestational hypertension COVID-19 affecting in second trimester Gestational hypertension, third trimester Raynauds phenomenon Syncope Syncopal episode while on a flight. Negative neuro eval at [facility] Surgical History S/P LASIK surgery of both eyes Family History Mother Pre-eclampsia Ovarian cyst Father Hyperlipidemia Sister Lesley's disease Maternal Grandfather Melanoma Maternal Grandmother , in her 70s of stroke Stroke Paternal Grandfather , in his 90s No problems noted. Paternal Grandmother , mid 80s Dementia Breast cancer Social History Smoking/Tobacco Use Status: Never Smoking risk assessment performed?: Yes Alcohol Intake: current Alcohol Intake frequency: a few times a month Alcohol type: wine Details: Not drinking now during Drug use: Never Caregiver/Support person: No Household members: spouse Housing: house Communication Needs: None Do you need help understanding health information?: Never current occupation: [employer] Pets and animals: Yes Pets and animals: dog(s) Sexually active: Yes Do you think of yourself as: straight/heterosexual Current gender identity: female How often do you talk on the phone with friends or family?: once per week How often do you get together with friends or relatives?: three or more times per week How often do you attend tenriism or hinduism services?: 1-3 times per year Do you belong to any clubs or organized social groups?: yes Panel score (0-1 are the most socially isolated patients): 2 What type of physical activity do you participate in: bicycling, other Details: skiing, hiking and running Duration: 45-60 minutes/day Frequency: daily Ritu/Yarsani: None Special ritu needs: No Seatbelt use: always Helmet use: Yes Helmet use: always Drive intox or ride w/intox flatbed truck driver: No Do you feel safe at home: Yes History History 4 Para 2 Hx # Term Pregnancies 2 Multiple births 0 Hx # Pregnancies 0 Ectopic pregnancies 0 AB induced 0 Hx Number of Living Children 2 AB spontaneous 2 Past Pregnancies Del. Date GA/Weeks # Preg Succ Route Wgt Sex Labor Lgth Anesthesia Location Prov [facility] 11/26/17 6 No No 09/28/19 40 No vaginal Female 6 hours Lesly 11/30/21 6 No No 05/18/23 38 No Yes vaginal 6 lb 7.88 oz Male 2hrs 32min [facility] Delivery Date: 11/26/17 Last Updated by: Jill Soto CNM SAB no complications Delivery Date: 09/28/19 Last Updated by: Jill Diaz CNM IOL for gestational hypertension, elevated liver enzymes, elevated uric acid. heavy bloody show prior to delivery. [place] Delivery Date: 11/30/21 Last Updated by: Jill Soto CNM SAB no complications Delivery Date: 05/18/23 Last Updated by: Vanessa Martel LPN Induced due to gestational hypertension Time Spent with Patient Time Spent with Patient: 45-69 minutes Time was spent: preparing to see the patient(eg.review tests), obtaining and/or reviewing separately otained hiistory, ordering medications,tests, procedures, indepentently interpreting results, counseling the patient and care coordination
== END 2023-05-25 01:50 | disposition home or self-care (01) ==
LOC: BCD 23:33
PROVIDERS: PCP Nurse Practitioner Family; Visit Provider Advanced Practice Midwife
DX: Z39.2 Encounter for routine postpartum follow-up; N64.59 Other signs and symptoms in breast
CPT/HCPCS: 36415; 80053; 85027; 99211; 83615; 84443; 84550

== ENCOUNTER → 2023-07-26 17:15 | Outpatient (CLI) | payer BC, SELFPAY ==
--- NOTE | 2023-07-26 18:00 | DI.RAD_ITS ---
Exam(s) XR ELBOW LT COMPLETE EXAM: XR ELBOW LT COMPLETE CLINICAL HISTORY: evaluate fx. TECHNIQUE: 2D digital imaging was performed. Three views. COMPARISON: No exams were available for comparison FINDINGS: BONES: There is a fracture extending through the a olecranon to the articular surface. There is sepa ration at the articular surface of approximately 3 millimeters. No additional fractures are seen. N o bony destructive lesion is seen. JOINTS: The elbow is normally aligned. A joint effusion is seen. SOFT TISSUE: Normal posterior soft tissue swelling. IMPRESSION: Mildly displaced intra-articular fracture of the olecranon. DATA REPOSITORY: RADIATION DOSE DELIVERED:
--- NOTE | 2023-07-26 18:43 | DI.VRAD_ITS ---
PROCEDURE INFORMATION: Exam: XR Left Elbow Exam date and time: 07/26/2023 6:09 PM Age: 38 years old Clinical indication: Other: Eval for FX TECHNIQUE: Imaging protocol: Radiologic exam of the left elbow. Views: 3 or more views. COMPARISON: No relevant prior studies available. FINDINGS: Bones/joints: Osseous mineralization is normal. There are no inflammatory osseous erosive changes. The joint spaces are maintained without degenerative changes. There is an oblique mildly displaced fracture through the olecranon which extends proximally to the articular surface at the humeral ulnar joint. There is up to 6 mm displacement across the fracture as well as mild apex posterior angulation. There are no subluxations. There may be a small elbow joint effusion. Soft tissues: There is mild soft tissue swelling posterior to the olecranon, likely posttraumatic. IMPRESSION: 1. Mildly displaced intra-articular fracture through the olecranon, as described above. 2. There are no subluxations. 3. Possible small joint effusion. Dictated and Authenticated by: Te De La Cruz MD. Ordering:BRITT Beckett MD
== END ==
PROVIDERS: PCP Nurse Practitioner Family; Visit Provider Nurse Practitioner Family
DX: M25.522 Pain in left elbow (principal)
CPT/HCPCS: 73080

== ENCOUNTER 2023-07-31 11:59 | Day surgery (SDC) | payer BC, SELFPAY ==
[2023-07-31] VITALS (12 sets, daily range): BP systolic 134–143; BP diastolic 75–94; PULSE 45–57; RESP 11–16; TEMP 36.3–36.6; O2SAT 98–100; BMI 23.5
--- NOTE | 2023-07-31 12:25 | ANES.PREOP_ITS ---
General Info Date of Service Date Performed: 07/31/23 Height: 5 ft 9 in Weight: 72.3 kg Body Mass Index (BMI): 23.5 Surgical Procedure: Operation Date: 07/31/23 15:25 Proposed Procedure Side Surgeon levi López ORIF Left Zion Neff MD Meds Allergies and Home Medications Allergies Allergy/AdvReac Type Severity Reaction Status Date / Time cats Allergy Mild Other (See Uncoded 07/31/23 12:21 Comment) seasonal Allergy Mild lots of Uncoded 07/31/23 12:21 congestion, watery eyes Home Medication Medication Instructions Recorded medroxyprogesterone 150 mg/mL 150 mg IM [id number] #1 mL 06/05/23 intramuscular syringe (Depo-Provera) Current Visit Medications: Current Medications Generic Name Dose Route Start Last Admin Trade Name Freq PRN Reason Stop Dose Admin Acetaminophen 1,000 mg 07/31/23 06:00 Acetaminophen 500 Mg Tab PO 07/31/23 23:59 PREOP [place] Acetaminophen 650 mg 07/31/23 10:09 Acetaminophen 325 Mg Tab PO 08/30/23 10:08 Q4H PRN PRN Hydrocodone Bitart/Acetaminophen 0 tab 07/31/23 10:09 Hydrocodone 5/Acetaminophen 325 Tab PO 08/30/23 10:08 Q3H PRN PRN Pain Celecoxib 400 mg 07/31/23 06:00 Celecoxib 200 Mg Cap PO 07/31/23 23:59 PREOP SAL[place] Ringer's Solution 1,000 mls @ 80 mls/hr 07/31/23 06:00 IV 07/31/23 23:59 INFUSION SAL[place] Cefazolin Sodium/Dextrose 2 gm in 50 mls @ 100 mls/hr 07/31/23 06:00 Ancef Duplex IVPB 07/31/23 23:59 PREOP SALENA Tranexamic Acid/Sodium Chloride 1,000 mg in 100 mls @ 600 mls/hr 07/31/23 06:00 IVPB 07/31/23 23:59 PREOP SALENA IV Miscellaneous Supplies 1 each 07/31/23 06:00 Iv Access IV 07/31/23 23:59 DIRECTED [place] Sodium Chloride 0 ml 07/31/23 06:00 Normal Saline Flush 10 Ml Syr IV 07/31/23 23:59 PRN PRN Sodium Chloride 0 ml 07/31/23 06:00 Normal Saline 10 Ml Vial IJ 07/31/23 23:59 DIRECTED PRN Sterile Water 0 ml 07/31/23 06:00 Water,Injection,Sterile 10 Ml Vial IJ 07/31/23 23:59 DIRECTED PRN PFSH Active Problems Active Problems: Problem Status Onset Code Fracture of left proximal ulna S52.002A Encounter for Depo-Provera contraception Z30.42 Engorgement of breast N64.59 Lactating mother Z39.1 care following vaginal delivery Z39.2 Pelvic floor dysfunction in female M62.89 Medical History Medical History Elevated blood pressure affecting in third trimester, antepartum Advanced maternal age in multigravida Family history of congenital heart defect History of gestational hypertension COVID-19 affecting in second trimester Gestational hypertension, third trimester Raynauds phenomenon Syncope Syncopal episode while on a flight. Negative neuro eval at [facility] Surgical History Surgical History S/P LASIK surgery of both eyes Tobacco Smoking/Tobacco Use Status: Never Passive smoking exposure: No Alcohol Alcohol Intake: current Alcohol intake frequency: a few times a month Alcohol type: wine Substance Use Substance use: Never Prental History History 4 Para 2 Hx # Term Pregnancies 2 Multiple births 0 Hx # Pregnancies 0 Ectopic pregnancies 0 AB induced 0 Hx Number of Living Children 2 AB spontaneous 2 Past Pregnancies Del. Date GA/Weeks # Preg Succ Route Wgt Sex Labor Lgth Anesth esia Location Prov Complic 11/26/17 6 No No 09/28/19 40 No vaginal Female 6 hours Lesly 11/30/21 6 No No 05/18/23 38 No Yes vaginal 2944.948 g Male 2hrs 32min THEE Bull Delivery Date: 11/26/17 Last Updated by: Jill Soto CNM SAB no complications Delivery Date: 09/28/19 Last Updated by: Jill Diaz CNM IOL for gestational hypertension, elevated liver enzymes, elevated uric acid. heavy bloody show prior to delivery. [place] Delivery Date: 11/30/21 Last Updated by: Jill Soto CNM SAB no complications Delivery Date: 05/18/23 Last Updated by: Vanessa Martel LPN Induced due to gestational hypertension Vital Signs and Lab Results Lab Results Blood Type / Crossmatch: No Data to Display Complete Blood Count: No Data to Display Complete Metabolic Panel: No Data to Display Liver Function Panel: No Data to Display Coagulation Panel: No Data to Display Cardiac Panel: No Data to Display Arterial Blood Gas: No Data to Display Venous Blood Gas: No Data to Display Pancreas Panel: No Data to Display Thyroid Panel: No Data to Display Infectious Disease: No Data to Display Blood Cultures: No Data to Display Toxicology Panel: No Data to Display Panel: Urine HCG, Qualitative Negative 07/05/23 14:38 Anesthesia Assessment and Plan Anesthesia History Personal History: No History of Anesthesia Complications Family History: No Family History of Anesthesia Complications Exercise Tolerance Exercise Tolerance: Metabolic Equivalents>4 Pertinent Negatives Pertinent Negatives: No Symptoms of GERD, No Major Pulmonary Symptoms or Complaints and No History of CVA/TIA Cardiac & Pulmonary Exam Cardiac Exam: Normal S1/S2 Heart Sounds Pulmonary Exam: Clear Bilateral Breath Sounds Implantable Cardiac Device Does patient have a Pacemaker or an ICD?: No Airway Exam Known Difficult Airway: No Mallampati Class: 2 Mouth Opening: Normal (> 3cm) Thyromental Distance: Greater than 3 cm Neck Range of Motion: Full ROM Neck Circumference: Normal Teeth Condition: Normal Dentition ASA Classification ASA Score: ASA 2 Emergency Case?: No NPO Status NPO Status: NPO Clears >2 hours, Solids >8 hours Status Status: Negative HCG Anesthesia Plan Resuscitation Status: Full Code Anesthesia Technique: General Anesthesia Airway Planned: Endotracheal Tube Monitors Used: Standard Monitors
[2023-07-31] MEDS: Acetaminophen 500 MG TAB 1000 MG PO (12:29)
[2023-07-31] MEDS: Celecoxib 200 MG CAP 400 MG PO (12:29)
[2023-07-31] MEDS: Lactated Ringers 1,000 ML 80 ML IV (12:49)
--- NOTE | 2023-07-31 13:08 | W.PM.DSUDISC ---
Date of service: 07/31/23 Time of Service: 15:00 Discharge Plan Disposition Patient Disposition: Home Condition: Good Discharge Details Reason For Visit: Left olecranon fracture Attending Provider: Zion Neff Primary Care Provider: Jody Fofana Home Meds and New Rx's Prescriptions: New acetaminophen 500 mg tablet 1,000 mg PO Q8H PRN Qty: 90 0RF Rx Instructions: Take two tablets up to every 8 hours as needed for pain hydrocodone-acetaminophen 5-325 mg tablet 1 tab PO Q6H PRN (Reason: severe pain) Qty: 6 0RF Rx Instructions: Take one tablet up to every 6 hours as needed for severe postoperative pain ibuprofen 600 mg tablet 600 mg PO TID PRN (Reason: pain) Qty: 60 0RF Continued medroxyprogesterone [Depo-Provera] 150 mg/mL syringe 150 mg IM [id number] Qty: 1 1RF Discharge Instructions Additional Instructions: Olecranon Fracture Discharge Instructions Activity: You should use the sling for comfort. You may do gentle motion of the fingers and wrist as needed. No repetitive activities nor heavy lifting. You may apply ice. You may gently move the elbow, start first with letting it dangle at your side and helping with the other hand to bend it back up. You may then gradually increase moving it on your own. Medications: - You should take Tylenol and Ibuprofen around the clock. - You have been prescribed Hydrocodone for breakthrough pain. Dressings: - Keep Milton wrap for at least 3 days after which you may remove wrap. Cover the arm for bathing. If Milton wrap is too tight you may re-wrap if needed. Keep Mepilex bandage on over incision until follow-up appointment. Follow-up: 10 days Stand Alone Forms: Anesthesia Discharge Inst., Shivani Pate (DSU) Referrals: Zion Neff MD [ [facility]] - Equipment/Supplies: Sling Activity:: Elevate Remove Dressings/Wound Care:: Do Not Remove Shower/Bathe:: Cover Diet:: As Tolerated Discharge Orders Discharge Orders: Discharge Order (Routine); Ordered 07/31/23 Ordered By: Cassandra Woodruff DS: Diagnosis Discharge Diagnosis (1) Fracture of left proximal ulna: Status: Acute
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
[2023-07-31] MEDS: ceFAZolin 2 GM/50 ML BAG IVPB (13:40)
[2023-07-31] MEDS: TRANEXAMIC ACID/SOD. CHL. 1,000 MG/100 ML BAG 600 MG IVPB (13:51)
[2023-07-31] MEDS: Bupivacaine 0.5% Pres-Free W/EPI 30 ML VIAL (14:05)
--- NOTE | 2023-07-31 14:39 | DI.RAD_ITS ---
Exam(s) XR ELBOW LT LIMITED EXAM: XR ELBOW LT LIMITED CLINICAL HISTORY: Fracture of left proximal ulna TECHNIQUE: 2D and realtime digital imaging was performed. CONTRAST MATERIAL: Refer to procedure report. COMPARISON: CR,XR XR ELBOW LT COMPLETE from 07/26/2023 FINDINGS: Fluoroscopy was provided for Dr. Neff during the performance of a reduction and internal fixatio n of the proximal ulnar fracture. Please refer to the procedure report for complete details. Ka,r=0.39 mGy IMPRESSION: RADIATION DOSE DELIVERED: 0.0 0.0 0
--- NOTE | 2023-07-31 14:52 | ROE_ITS ---
Date of service: 07/31/23 Time of Service: 13:30 Operative Note Operative Note DATE OF PROCEDURE: 07/31/23 PRE-OP DIAGNOSIS: Left Olecranon Fracture POST-OP DIAGNOSIS: same PROCEDURE: Open reduction internal fixation with intramedullary screw of left olecranon fracture SURGEON: Zion Neff EMERGENCY MEDICAL TECHNICIAN: Cassandra Woodruff ANESTHESIA TYPE: General LMA/ETT Refer to Anesthesia Record ESTIMATED BLOOD LOSS: 10 PATHOLOGY: none sent TOURNIQUET TIME: 0 COMPLICATIONS: None Patient was transported to: PACU Patient's condition: stable Indications: Nayana is a 38-year-old active [id number] female who suffered a fall onto the flexed left elbow resulting in a displaced olecranon fracture. Given the nature of the fracture I recommended surgery. I discussed the technical details of the surgery, open reduction and internal fixation. I reviewed the risk to include bleeding, infection, pain, stiffness, malunion, nonunion, hardware prominence, hardware failure, need for repeat procedures. Despite these risk, she elected to proceed. Findings: There is a mildly displaced olecranon fracture which was reduced and fixed with a single 7.3 mm x 105 mm screw. Procedure Description: Nayana was greeted the preoperative holding area. I did was confirmed the correct site was identified and marked. The consent was reviewed the patient and signed. History physical was updated. She segment to the operating room placed in the supine position with the left hand on the armboard to start. The left arm was then prepped ChloraPrep and draped in a standard fashion. No tourniquet was used. Prophylactic antibiotics in the form of cefazolin were given. A timeout was performed for safe surgery. The proposed surgical site along with the deep tissues all the way down to the ulna were then injected with 0.25% bupivacaine with epinephrine. An incision was then made over the dorsal aspect of the left elbow traveling along the subcutaneous border of the ulna and then going around the prominence of the olecranon and up the back of the elbow. Sharp dissection was carried down to the skin. The subcutaneous surface of the ulna was identified as well as the fascia of the triceps as it inserts onto the olecranon as well as the fracture. The fracture was still traversed by some connecting tissues of muscle and fascia over its medial and lateral aspects. The fracture was opened and early healing was removed. This was thoroughly irrigated. Any interposed tissue was moved out of the way. The apex of the fracture was seen dorsally and this was used as reduction guide. This was manually reduced in position with the arm in some extension and held with a single K wire. X-ray was used to confirm appropriate position of the fracture. It was stable at the 90 degrees of flexion. I then proceeded with a single intramedullary screw fixation given the simple nature of the fracture. The K wire from the 7.3 mm cannulated screw system was then used through the olecranon into the ulna. X-ray was utilized to confirm appropriate positioning as it traversed the fracture and into the ulnar shaft. Once there was some resistance the screw path was drilled. I then used a tap until I had e xcellent resistance of cutting the tap into the cortex of the ulna. The tap was removed and the length of the tap was measured. 5 mm of subtracted to give a total length of 105 mm. A 7.3 x 105 mm screw was selected with a washer. This was then inserted manually. Became evident when the screw was going in that there was some contact with the passing K wire. However, the screw and with excellent alignment and compression. The K wire was removed but it was noted that it had been cut by the passing tab or screw therefore, the screw was removed to the proximal aspect of the fracture fragment and the pin was removed from within the bone of the ulna. The fracture was then once again reduced and the screw was advanced again. This was manually tightened with excellent compression of the fracture. The washer was previously shoehorn underneath the triceps fascia. X-ray showed near anatomic alignment of the fracture with mild dorsal step-off but no incongruity at the level of the joint. The wound was then thoroughly irrigated. The triceps fascia was closed with 0 Vicryl. The deep tissues were closed with 3-0 Vicryl followed by 4-0 Monocryl in a running, subcuticular fashion. This was dressed with Mepilex silver dressing followed by ABD and an Milton wrap. She was placed back into a sling. At the end the case all counts were correct. She was transferred to the PACU in stable condition.
[2023-07-31] MEDS: fentaNYL 100 MCG/2 ML VIAL IVP (15:13)
[2023-07-31] MEDS: Normal Saline 10 ML VIAL IJ (15:40)
[2023-07-31] MEDS: HYDROmorphone 2 MG/ML SYR IVP (15:40)
[2023-07-31] MEDS: HYDROcodone 5/Acetaminophen 325 TAB PO (16:47)
--- NOTE | 2023-07-31 17:05 | W.ANESPOSTOP ---
Postoperative Evaluation Date, Time and Location Date Performed: 07/31/23 Time Performed: 17:00 Patient Location: Day Surgery Unit Vital Signs Most Recent Imported Vital Signs: Most Recent Vital Signs Temp Pulse Resp BP Pulse Ox 36.6 C 46 L 16 142/88 H 100 07/31/23 16:37 07/31/23 16:37 07/31/23 16:37 07/31/23 16:37 07/31/23 16:37 Pain Score Most Recent Pain Score: Most Recent Pain Score Pain Level 5 07/31/23 16:37 Assessment Mental Status: Awake (Alert & Oriented to Patient Baseline) Airway and Respiratory Function: Patent airway with normal (patient baseline) respiratory exam Cardiovascular Function: Hemodynamically Stable Hydration Status: Adequately Hydrated Nausea & Vomiting: No Nausea or Vomiting Pain: Pain is Moderate or Severe Postoperative Pain Management: Pain being addressed with medication Peripheral Nerve Block: Patient did not receive a nerve block
== END 2023-07-31 17:35 | disposition home or self-care (01) ==
PROVIDERS: PCP Nurse Practitioner Family; Visit Provider Student in an Organized Health Care Education/Training Program
PROC: (CPT 24685; principal; 2023-07-31 15:15)
DX: S52.022A Displaced fracture of olecranon process without intraarticular extension of left ulna, initial encounter for closed fracture; W19.XXXA Unspecified fall, initial encounter; I73.00 Raynaud's syndrome without gangrene
CPT/HCPCS: 24685; 76000; 81025; 73070; J0690; J1100; J1170; J2001; J2250; J2405; J2704; J3010

== ENCOUNTER 2023-08-13 15:53 | Outpatient (CLI) | payer BC, SELFPAY ==
--- NOTE | 2023-08-13 15:00 | DI.RAD_ITS ---
Exam(s) XR ELBOW LT COMPLETE EXAM: XR ELBOW LT COMPLETE INDICATION: s/p ORIF L OLECRENON. COMPARISON: CR,XR XR ELBOW LT COMPLETE from 07/26/2023 XA XR ELBOW LT LIMITED from 07/31/2023 TECHNIQUE: 2D digital imaging was performed. Two views. FINDINGS: There has been no change in fracture alignment. Screws again noted through the olecranon. Soft tissue swelling remains present. No new abnormalities. DATA REPOSITORY: RADIATION DOSE DELIVERED:
== END 2023-08-13 15:54 | disposition home or self-care (01) ==
LOC: DIORS 15:53
PROVIDERS: PCP Nurse Practitioner Family; Visit Provider Physician Assistant
DX: S52.022D Displaced fracture of olecranon process without intraarticular extension of left ulna, subsequent encounter for closed fracture with routine healing (principal); X58.XXXD Exposure to other specified factors, subsequent encounter
CPT/HCPCS: 73080

== ENCOUNTER 2023-09-13 13:34 | Outpatient (CLI) | payer BC, SELFPAY ==
--- NOTE | 2023-09-13 08:52 | DI.RAD_ITS ---
Exam(s) XR ELBOW LT LIMITED EXAM: XR ELBOW LT LIMITED CLINICAL HISTORY: f/u fx. TECHNIQUE: 2D digital imaging was performed. COMPARISON: CR XR ELBOW LT COMPLETE from 08/13/2023 FINDINGS: Two views. Lung to 2 knee orientated thick screw across the olecranon fossa fracture site again note d and there is stable alignment at the fracture site. Fracture lines still visible but less so than on the images of 1 month ago. No displacement. Radial head and neck remain unremarkable as does the capitellum and trochlea. Epicondyles unremarkable. There is no swelling of the olecranon bursa and there is less subcutaneous swelling. No evidence of osteomyelitis. IMPRESSION: Progression towards healing. Hardware in good position. No hardware migration nor evidence of osteomyelitis. DATA REPOSITORY: RADIATION DOSE DELIVERED:
== END 2023-09-13 13:35 | disposition home or self-care (01) ==
LOC: DIORS 13:34
PROVIDERS: PCP Nurse Practitioner Family; Visit Provider Physician Assistant
DX: S52.002A Unspecified fracture of upper end of left ulna, initial encounter for closed fracture (principal)
CPT/HCPCS: 73070

== ENCOUNTER 2023-10-25 15:20 | Outpatient (CLI) | payer BC, SELFPAY ==
--- NOTE | 2023-10-25 08:57 | DI.RAD_ITS ---
Exam(s) XR ELBOW LT LIMITED EXAM: XR ELBOW LT LIMITED INDICATION: F/U FX. COMPARISON: CR XR ELBOW LT LIMITED from 09/13/2023 TECHNIQUE: 2D digital imaging was performed. Two views. FINDINGS: Continued healing of proximal ulnar fracture. Fixation screw unchanged in position. DATA REPOSITORY: RADIATION DOSE DELIVERED:
== END 2023-10-25 15:21 | disposition home or self-care (01) ==
LOC: DIORS 15:21
PROVIDERS: PCP Nurse Practitioner Family; Visit Provider Student in an Organized Health Care Education/Training Program
DX: S52.002A Unspecified fracture of upper end of left ulna, initial encounter for closed fracture (principal)
CPT/HCPCS: 73070

== ENCOUNTER 2023-11-07 10:06 | Outpatient (REF) | payer BC, SELFPAY ==
[2023-11-07 13:44] LABS: Bilirubin Negative (Negative); Blood Negative (Negative); Clarity Sl Cloudy (Clear); Glucose Negative (Negative); Ketones Negative (Negative); Leukocyte Esterase Trace (Negative); Nitrite Negative (Negative); Specific Gravity 1.015 (1.005-1.025); Urobilinogen 0.2 mg/dL (Up to 0.2); pH 6.5 (5-8)
[2023-11-07 14:06] LABS: Bacteria Rare HPF (Negative); C & S Indicated? C&S Done As Ordered; Casts Negative LPF (Negative); Crystals Negative HPF (Negative); Epithelial Cells Many HPF (Negative); Mucus Trace (Negative); RBC 0-2 HPF (0-2)
== END 2023-11-07 10:07 | disposition home or self-care (01) ==
LOC: LBN 10:06
PROVIDERS: PCP Nurse Practitioner Family; Visit Provider Physician Assistant
DX: R39.9 Unspecified symptoms and signs involving the genitourinary system (principal); N39.0 Urinary tract infection, site not specified; R39.15 Urgency of urination
CPT/HCPCS: 87077; 81003; 81015; 87086; 87186

== ENCOUNTER 2024-02-28 18:40 | Outpatient (REF) | payer BC, SELFPAY | END 2024-02-28 18:41 | disposition home or self-care (01) | LOC: LBN 18:40 | PROVIDERS: PCP Nurse Practitioner Family; Visit Provider Physician Assistant | DX: N39.0 Urinary tract infection, site not specified (principal); R30.0 Dysuria | CPT/HCPCS: 87086; 87480; 87510; 87660 ==

== ENCOUNTER 2024-02-29 13:16 | Outpatient (REF) | payer BC, SELFPAY | END 2024-02-29 13:17 | disposition home or self-care (01) | LOC: LBN 13:16 | PROVIDERS: PCP Nurse Practitioner Family; Visit Provider Nurse Practitioner Family | DX: N39.0 Urinary tract infection, site not specified (principal) | CPT/HCPCS: 87086 ==

== ENCOUNTER 2024-08-23 14:49 | Outpatient (REF) | payer BC, SELFPAY ==
[2024-08-23 16:42] LABS: Bilirubin Negative (Negative); Blood Moderate (Negative); Clarity Turbid (Clear); Glucose Negative (Negative); Ketones Trace mg/dL (Negative); Leukocyte Esterase Negative (Negative); Nitrite Negative (Negative); Specific Gravity >= 1.030 (1.005-1.025); Urobilinogen 0.2 mg/dL (Up to 0.2); pH 5.5 (5-8)
[2024-08-23 18:44] LABS: Bacteria Rare HPF (Negative); C & S Indicated? No; Casts Negative LPF (Negative); Crystals Many Calcium Oxalate HPF (Negative); Epithelial Cells Rare HPF (Negative); Mucus Moderate (Negative); WBC Negative HPF (0-5)
[2024-08-26 14:27] LABS: Bacterial Vaginosis (BV) Negative (Negative); Candida glabrata Negative (Negative); Candida species group Negative (Negative); Trichomonas vaginalis Negative (Negative)
== END 2024-08-23 14:50 | disposition home or self-care (01) ==
LOC: LBN 14:49
PROVIDERS: PCP Nurse Practitioner Family; Visit Provider Physician Assistant
DX: R30.0 Dysuria (principal)
CPT/HCPCS: 81513; 87481; 87661; 81003; 81015; 87480; 87510; 87660

== ENCOUNTER 2024-09-08 10:56 | Outpatient (CLI) | payer BC, SELFPAY ==
--- NOTE | 2024-09-08 10:45 | DI.RAD_ITS ---
Exam(s) XR ELBOW LT LIMITED EXAM: XR ELBOW LT LIMITED CLINICAL HISTORY: left elbow pain. TECHNIQUE: 2D digital imaging was performed of the left elbow. Two images were obtained. AP and lateral views were obtained. COMPARISON: CR,XR XR ELBOW LT COMPLETE from 07/26/2023 CR XR ELBOW LT LIMITED from 10/25/2023 FINDINGS: BONES: There is again seen a screw transfixing the healed left ulnar fracture. No new fracture is identified. No bony destructive lesion is seen. JOINTS: The elbow is normally aligned. No joint effusion is seen. SOFT TISSUE: Normal. IMPRESSION: Completely healed proximal left ulnar fracture. No acute abnormality. DATA REPOSITORY: RADIATION DOSE DELIVERED:
== END 2024-09-08 10:57 | disposition home or self-care (01) ==
LOC: DIORS 10:56
PROVIDERS: PCP Nurse Practitioner Family; Visit Provider Physician Assistant
DX: Z98.890 Other specified postprocedural states (principal); Z87.81 Personal history of (healed) traumatic fracture
CPT/HCPCS: 73070

== ENCOUNTER 2024-10-06 10:28 | Outpatient (REF) | payer BC, SELFPAY ==
--- NOTE | 2024-10-06 10:00 | PAPFT_PTH ---
PATIENT: Nayana Marshall I LOC: [facility] U#:[id number] AGE/SX: 39/F ROOM: RE10/06/[address]: DO Gould : 1985 BED: DIS: 10/06/2024 SPEC #: [id number] RECD: 10/06/24 13:13 STATUS: DENISE REQ #: [id number] JENELLE: 10/06/24 10:[address]: Jody Fofana DEPT: [facility] Cytology RECD BY: Carole Pena Tissues: 1 - CX/ENDOCX FOR PAP SMEARS Procedures: PAP THIN PREP/UVM Screening HPV DNA PROBE Comments: [id number] (HPV 16 & 18/45)
== END 2024-10-06 10:29 | disposition home or self-care (01) ==
LOC: LBN 10:28
PROVIDERS: PCP Nurse Practitioner Family; Visit Provider Nurse Practitioner Family
DX: Z12.4 Encounter for screening for malignant neoplasm of cervix (principal)
CPT/HCPCS: 88142; 87624